=== PATIENT | female | born 1955 | race Caucasian/White ===

== ENCOUNTER 2018-04-23 15:07 | Observation (INO) | payer MEDICARE, OTHER ==
[2018-04-23] VITALS: BP 82/51
[~2018-04-23] VITALS: Ht 157.5 cm; Wt 45.8 kg
--- OUTSIDE RECORDS SUMMARY | 2018-04-23 15:12 | XMS REPORT ---
Author Author Admin, [place] Organization [facility] Address Unknown Phone Unavailable Allergies, Adverse Reactions, Alerts Allergy Name Reaction Description Start Date Severity Status Provider Allergies Unknown Conditions or Problems Problem Name Problem Code Onset Date Status Entry Date Provider Comment Standard Description Annotate ALCOHOL USE DISORDER, EARLY REMISSION, SEVERE Active Crystal Carrasquillo LCSW ALCOHOL USE DISORDER, SUSTAINED REMISSION, SEVERE Active Crystal Carrasquillo LCSW Bipolar I dsord ,most recent epsd, unspec 296.7 Active Marya Collazo GLASS CUTTING MACHINE FEEDER Bipolar I disorder, most recent episode (or current) unspecified Post traumatic stress disorder 309.81 Active Marya Collazo GLASS CUTTING MACHINE FEEDER Posttraumatic stress disorder Medication List Medication Instructions Start Date Stop Date Generic Name NDC Status Provider Patient Instruction Drug Treatment Unknown - unknown Procedures Code Procedure Name Date Entry Date Standard Description CPT-51680 Psychotherapy 45 (38-52*) min - 09206 (with patient and/or family member) 12:40:49 CDT CPT-24675 Psychotherapy 45 (38-52*) min - 82587 (with patient and/or family member) 10:12:01 EXTRACTOR MACHINE OPERATOR CPT-78786 Psychotherapy 45 (38-52*) min - 73143 (with patient and/or family member) 07:57:26 EXTRACTOR MACHINE OPERATOR CPT-68574 Psychotherapy 45 (38-52*) min - 62660 (with patient and/or family member) 07:51:39 EXTRACTOR MACHINE OPERATOR CPT-34183 Psychotherapy 45 (38-52*) min - 88483 (with patient and/or family member) 14:39:04 CDT CPT-35720 Psychotherapy 45 (38-52*) min - 05831 (with patient and/or family member) 15:57:26 CDT CPT-60606 Psychotherapy 45 (38-52*) min - 37093 (with patient and/or family member) 15:40:58 CDT CPT-95018 Psychotherapy 45 (38-52*) min - 40001 (with patient and/or family member) 15:30:55 CDT CPT-53674 Psychotherapy 45 (38-52*) min - 36029 (with patient and/or family member) 09:52:25 CDT CPT-44073 Psychotherapy 45 (38-52*) min - 44084 (with patient and/or family member) 10:57:14 EXTRACTOR MACHINE OPERATOR CPT-78636 Psychotherapy 45 (38-52*) min - 34710 (with patient and/or family member) 07:39:37 EXTRACTOR MACHINE OPERATOR CPT-77501 Psychotherapy 45 (38-52*) min - 05991 (with patient and/or family member) 12:22:35 EXTRACTOR MACHINE OPERATOR CPT-62668 Psychotherapy 45 (38-52*) min - 57450 (with patient and/or family member) 10:00:46 EXTRACTOR MACHINE OPERATOR CPT-45176 Psychotherapy 45 (38-52*) min - 71325 (with patient and/or family member) 14:18:00 CDT CPT-87223 Psychotherapy 45 (38-52*) min - 87508 (with patient and/or family member) 13:43:36 CDT CPT-79866 Psychotherapy 45 (38-52*) min - 21817 (with patient and/or family member) 13:50:27 CDT CPT-68421 Diagnostic evaluation (no medical) - 22875 12:18:57 CDT CPT-57735 Psychotherapy 45 (38-52*) min - 11142 (with patient and/or family member) 14:22:33 EXTRACTOR MACHINE OPERATOR CPT-34139 Psychotherapy 45 (38-52*) min - 82534 (with patient and/or family member) 13:53:45 EXTRACTOR MACHINE OPERATOR CPT-56817 Psychotherapy 45 (38-52*) min - 45221 (with patient and/or family member) 13:56:36 EXTRACTOR MACHINE OPERATOR CPT-88879 Psychotherapy 45 (38-52*) min - 82917 (with patient and/or family member) 13:45:45 EXTRACTOR MACHINE OPERATOR CPT-00454 Psychotherapy 45 (38-52*) min - 84600 (with patient and/or family member) 20:32:10 CDT CPT-49820 Psychotherapy 45 (38-52*) min - 32182 (with patient and/or family member) 13:48:27 CDT CPT-93812 Psychotherapy 45 (38-52*) min - 86585 (with patient and/or family member) 08:39:18 CDT CPT-00878 Psychotherapy 45 (38-52*) min - 58779 (with patient and/or family member) 22:48:20 CDT CPT-79317 Psychotherapy 45 (38-52*) min - 25708 (with patient and/or family member) 12:59:02 CDT CPT-40075 Psychotherapy 45 (38-52*) min - 84936 (with patient and/or family member) 08:50:00 CDT CPT-35194 Psychotherapy 45 (38-52*) min - 33481 (with patient and/or family member) 13:46:13 CDT CPT-87970 Psychotherapy 45 (38-52*) min - 23579 (with patient and/or family member) 14:04:12 CDT CPT-04523 Psychotherapy 45 (38-52*) min - 59708 (with patient and/or family member) 11:59:14 CDT CPT-43967 Psychotherapy 45 (38-52*) min - 69207 (with patient and/or family member) 14:44:30 CDT CPT-47029 Psychotherapy 45 (38-52*) min - 90295 (with patient and/or family member) 15:16:05 CDT CPT-17583 Diagnostic evaluation (no medical) - 27287 13:53:31 CDT
--- OUTSIDE RECORDS SUMMARY | 2018-04-23 15:12 | XMS REPORT | Clinical Summary ---
Author Author [facility] Address Unknown Phone Unavailable Care Team Providers Care Formula Mixer Name Role Phone Rosio Burns MD PCP Allergies Comments Active Allergy Reactions Severity Noted Date Cefaclor 08/30/2016 Medications End Date Status Medication Sig Dispensed Refills Start Date Active buPROPion SR (WELLBUTRIN TK 1 T PO QAM 2 SR) 150 MG 12 hr tablet 7 Active cyanocobalamin 1,000 INJECT 1000 0 mcg/mL injection MCG IM Q 7 MONTH Active gabapentin (NEURONTIN) TK 1 T PO QAM 3 600 mg tablet AND 2 TS QPM 7 Active lamoTRIgine (LaMICtal) TK 1 T PO 2 200 MG tablet ONCE DAILY 7 Active levothyroxine (SYNTHROID, TK 1 T PO D 0 LEVOXYL) 88 mcg tablet 7 Active traMADol (ULTRAM) 50 mg TK 2 TS PO 0 tablet BID 7 Active QUEtiapine (SEROquel) 200 2 (two) times 2 MG tablet a day. 7 Active ibuprofen (ADVIL,MOTRIN) Take 1 tablet 30 tablet 0 600 MG tablet (600 mg 7 total) by mouth every 6 (six) hours as needed for mild pain for up to 30 doses. Active ondansetron ODT (ZOFRAN Take 1 tablet 20 tablet 0 ODT) 4 MG disintegrating (4 mg total) 8 tablet by mouth every 8 (eight) hours as needed for nausea or vomiting for up to 30 doses. 12/25/2017 famotidine (PEPCID) 20 MG Take 1 tablet 60 tablet 0 tablet (20 mg total) 8 by mouth 2 (two) times a day for 30 days. Active Problems Problem Noted Date S/P gastric bypass 11/05/2016 Nausea 11/05/2016 Vomiting in adult 11/05/2016 Weight loss 11/05/2016 Encounters Care Team Description Date Type Specialty BarnesIzabel carias Bariatric Surgery Follow Up Letter 03/20/2018 Documentation Weight Management Izabel Barnes Bariatric Surgery Follow Up Call 03/20/2018 Documentation Weight Management Chano Gates DO Non-intractable vomiting with nausea, unspecified vomiting type (Primary Dx); Dehydration 11/25/2017 Emergency Emergency Medicine Rosio Burns MD Knee pain, unspecified chronicity, unspecified laterality 08/05/2017 Hospital Radiology Encounter Rosio Burns MD Knee pain, unspecified chronicity, unspecified laterality (Primary Dx) 08/05/2017 Transcribe Access Orders after 04/22/2017 Social History Date Tobacco Use Types Packs/Day Years Used Never Smoker Smokeless Tobacco: Never Used Tobacco Cessation: Counseling Given: No Alcohol Use Drinks/Week oz/Week Comments No Sex Assigned at Date Recorded Not on file Industry Job Start Date Occupation Not on file Not on file Not on file Travel End Travel History Travel Start No recent travel history available. Last Filed Vital Signs Time Taken Vital Sign Reading 11/25/2017 7:27 PM CDT Blood Pressure 124/77 11/25/2017 7:27 PM CDT Pulse 87 11/25/2017 3:57 PM CDT Temperature 36.7 C (98 F) 11/25/2017 7:27 PM CDT Respiratory Rate 17 11/25/2017 7:27 PM CDT Oxygen Saturation 100% - Inhaled Oxygen - Concentration - Weight - - Height - - Body Mass Index - Plan of Treatment Health Maintenance Due Date Last Done Comments CERVICAL CANCER SCREENING 1977 BREAST CANCER SCREENING 2006 COLON CANCER SCREENING 2006 SHINGLES VACCINES (1 of 2006 2) INFLUENZA VACCINE 10/22/2017 Procedures Comments Procedure Name Priority Date/Time Associated Diagnosis ECG ED PRELIMINARY Routine 11/25/2017 INTERPRETATION 6:40 PM CDT URINALYSIS SCREEN AND STAT 11/25/2017 MICROSCOPY, WITH REFLEX 4:56 PM CDT TO CULTURE URINE CULTURE STAT 11/25/2017 4:56 PM CDT ZZESTIMATED GFR STAT 11/25/2017 4:20 PM CDT LIPASE LEVEL STAT 11/25/2017 4:20 PM CDT COMPREHENSIVE METABOLIC STAT 11/25/2017 PANEL 4:20 PM CDT HC COMPLETE BLD COUNT STAT 11/25/2017 W/AUTO DIFF 4:20 PM CDT ECG 12-LEAD STAT 11/25/2017 4:07 PM CDT XR KNEE 4+ VW RIGHT Routine 08/05/2017 Knee pain, unspecified 3:48 PM CDT chronicity, unspecified laterality after 04/22/2017 Results * ECG ED Preliminary Interpretation - NOT AN ORDER (11/25/2017 6:40 PM CDT) Narrative Performed At Chano Gates DO 11/26/20174:01 PM ECG ED Preliminary Interpretation - Not an Order Performed by: CHANO GATES Authorized by: CHANO GATES ECG reviewed by ED Physician in the absence of a emergency room technician: yes Interpretation: Interpretation: normal Rate: ECG rate:100 ECG rate assessment: normal Rhythm: Rhythm: sinus rhythm Ectopy: Ectopy: none QRS: QRS axis:Normal QRS intervals:Normal Conduction: Conduction: normal ST segments: ST segments:Normal T waves: T waves: normal * Urinalysis screen and microscopy, with reflex to culture (11/25/2017 4:56 PM CDT) Specimen site Clean catch [facility] DEPARTMENT OF PATHOLOGY AND GENOMIC MEDICINE Color, UA Yellow [facility] DEPARTMENT OF PATHOLOGY AND GENOMIC MEDICINE Appearance, UA Clear [facility] DEPARTMENT OF PATHOLOGY AND GENOMIC MEDICINE Specific gravity, UA 1.018 1.001 - 1.035 [facility] DEPARTMENT OF PATHOLOGY AND GENOMIC MEDICINE pH, UA 6.0 5.0 - 8.5 [facility] DEPARTMENT OF PATHOLOGY AND GENOMIC MEDICINE Protein, UA Negative Negative [facility] DEPARTMENT OF PATHOLOGY AND GENOMIC MEDICINE Glucose, UA Negative Negative [facility] DEPARTMENT OF PATHOLOGY AND GENOMIC MEDICINE Ketones, UA Negative Negative [facility] DEPARTMENT OF PATHOLOGY AND GENOMIC MEDICINE Bilirubin, UA Negative Negative [facility] DEPARTMENT OF PATHOLOGY AND GENOMIC MEDICINE Blood, UA Negative Negative [facility] DEPARTMENT OF PATHOLOGY AND GENOMIC MEDICINE Nitrite, UA Negative Negative [facility] DEPARTMENT OF PATHOLOGY AND GENOMIC MEDICINE Urobilinogen, UA Negative <2.0 [facility] DEPARTMENT OF PATHOLOGY AND GENOMIC MEDICINE Leukocyte esterase, UA Negative Negative [facility] DEPARTMENT OF PATHOLOGY AND GENOMIC MEDICINE Epithelial cells, UA Few /HPF [facility] DEPARTMENT OF PATHOLOGY AND GENOMIC MEDICINE WBC, UA 3 0 - 5 /HPF [facility] DEPARTMENT OF PATHOLOGY AND GENOMIC MEDICINE RBC, UA 1 0 - 5 /HPF [facility] DEPARTMENT OF PATHOLOGY AND GENOMIC MEDICINE Bacteria, UA None seen None seen [facility] DEPARTMENT OF PATHOLOGY AND GENOMIC MEDICINE Yeast, UA None seen [facility] DEPARTMENT OF PATHOLOGY AND GENOMIC MEDICINE Yeast with pseudohyphae, None seen [facility] DEPARTMENT OF UA PATHOLOGY AND GENOMIC MEDICINE Specimen Urine Performing Organization Address City/State/Zipcode Phone Number [address] [place] [address] PATHOLOGY AND GENOMIC MEDICINE * Urine culture (11/25/2017 4:56 PM CDT) Urine culture SEE COMMENTComment: [facility] DEPARTMENT OF Bacteriuria screen negative. PATHOLOGY AND GENOMIC MEDICINE Specimen Urine Performing Organization Address City/[facility] Cent[facility]ode Phone Number [facility] [address] [place] [address] [place] [address] PATHOLOGY AND GENOMIC MEDICINE * Estimated GFR (11/25/2017 4:20 PM CDT) GFR Non Af Amer 85 mL/min/1.73 m2 [facility] DEPARTMENT OF PATHOLOGY AND GENOMIC MEDICINE GFR Af Amer >90 mL/min/1.73 m2 [facility] DEPARTMENT OF Comment: PATHOLOGY AND Chronic kidney disease: <60 GENOMIC MEDICINE mL/min/1.73m2 Kidney failure: <15 mL/min/1.73m2 The estimated GFR is calculated from the IDMS-traceable Modification of Diet in Renal Disease Equation. The accuracy of the calculation is poor when the creatinine is normal. Calculated values >90 mL/min/1.73m2 are not reported. This equation has not been validated in children (<18 years), women, the elderly (>70 years), or ethnic groups other than Caucasians and Americans. Specimen Plasma specimen Performing Organization Address City/[facility]/Zipcode Phone Number [address] [place] [address] PATHOLOGY AND GENOMIC MEDICINE * CBC with platelet and differential (11/25/2017 4:20 PM CDT) WBC 5.2 4.2 - 11.0 k/uL [facility] DEPARTMENT OF PATHOLOGY AND GENOMIC MEDICINE RBC 4.49 4.04 - 5.86 m/uL [facility] DEPARTMENT OF PATHOLOGY AND GENOMIC MEDICINE HGB 11.6 11.5 - 15.3 g/dL [facility] DEPARTMENT OF PATHOLOGY AND GENOMIC MEDICINE HCT 38.3 34.0 - 45.0 % [facility] DEPARTMENT OF PATHOLOGY AND GENOMIC MEDICINE MCV 85.3 80.0 - 98.0 fL [facility] DEPARTMENT OF PATHOLOGY AND GENOMIC MEDICINE MCH 25.8 (L) 27.0 - 34.0 pg [facility] DEPARTMENT OF PATHOLOGY AND GENOMIC MEDICINE MCHC 30.3 (L) 31.5 - 36.5 g/dL [facility] DEPARTMENT OF PATHOLOGY AND GENOMIC MEDICINE RDW - SD 44.0 37.0 - 51.0 fL [facility] DEPARTMENT OF PATHOLOGY AND GENOMIC MEDICINE MPV 10.5 (H) 7.4 - 10.4 fL [facility] DEPARTMENT OF PATHOLOGY AND GENOMIC MEDICINE Platelet count 193 150 - 400 k/uL [facility] DEPARTMENT OF PATHOLOGY AND GENOMIC MEDICINE Nucleated RBC 0.00 /100 WBC [facility] DEPARTMENT OF PATHOLOGY AND GENOMIC MEDICINE Neutrophils 68.5 (H) 36.0 - 66.0 % [facility] DEPARTMENT OF PATHOLOGY AND GENOMIC MEDICINE Lymphocytes 26.1 24.0 - 44.0 % [facility] DEPARTMENT OF PATHOLOGY AND GENOMIC MEDICINE Monocytes 5.0 0.0 - 6.0 % [facility] DEPARTMENT OF PATHOLOGY AND GENOMIC MEDICINE Eosinophils 0.0 0.0 - 6.0 % [facility] DEPARTMENT OF PATHOLOGY AND GENOMIC MEDICINE Basophils 0.2 0.0 - 1.2 % [facility] DEPARTMENT OF PATHOLOGY AND GENOMIC MEDICINE Immature granulocytes 0.2 0.0 - 1.0 % [facility] DEPARTMENT OF PATHOLOGY AND GENOMIC MEDICINE Specimen Blood Performing Organization Address City/[facility]/Zipcode Phone Number [address] [place] [address] PATHOLOGY AND GENOMIC MEDICINE * Lipase level (11/25/2017 4:20 PM CDT) Lipase 31 13 - 60 U/L [facility] DEPARTMENT OF PATHOLOGY AND GENOMIC MEDICINE Specimen Plasma specimen Performing Organization Address City/State/Zipcode Phone Number [place] [address] [place] [address] PATHOLOGY AND GENOMIC MEDICINE * Comprehensive metabolic panel (11/25/2017 4:20 PM CDT) Sodium 142 135 - 150 mEq/L [facility] DEPARTMENT OF PATHOLOGY AND GENOMIC MEDICINE Potassium 4.2 3.5 - 5.0 mEq/L [facility] DEPARTMENT OF PATHOLOGY AND GENOMIC MEDICINE Chloride 100 98 - 112 mEq/L [facility] DEPARTMENT OF PATHOLOGY AND GENOMIC MEDICINE CO2 29 24 - 31 mmol/L [facility] DEPARTMENT OF PATHOLOGY AND GENOMIC MEDICINE Anion gap 13@ANIO 7 - 15 mEq/L [facility] DEPARTMENT OF PATHOLOGY AND GENOMIC MEDICINE BUN 13 7 - 18 mg/dL [facility] DEPARTMENT OF PATHOLOGY AND GENOMIC MEDICINE Creatinine 0.70 0.50 - 0.90 mg/dL [facility] DEPARTMENT OF PATHOLOGY AND GENOMIC MEDICINE Glucose 97 65 - 100 mg/dL [facility] DEPARTMENT OF PATHOLOGY AND GENOMIC MEDICINE Calcium 9.9 8.8 - 10.2 mg/dL [facility] DEPARTMENT OF PATHOLOGY AND GENOMIC MEDICINE Protein 7.4 6.3 - 8.3 g/dL [facility] DEPARTMENT OF PATHOLOGY AND GENOMIC MEDICINE Albumin 4.2 3.5 - 5.0 g/dL [facility] DEPARTMENT OF PATHOLOGY AND GENOMIC MEDICINE A/G ratio 1.3 0.7 - 3.8 [facility] DEPARTMENT OF PATHOLOGY AND GENOMIC MEDICINE Alkaline phosphatase 99 0 - 104 U/L [facility] DEPARTMENT OF PATHOLOGY AND GENOMIC MEDICINE AST 30 10 - 35 U/L [facility] DEPARTMENT OF PATHOLOGY AND GENOMIC MEDICINE ALT 16 5 - 50 U/L [facility] DEPARTMENT OF PATHOLOGY AND GENOMIC MEDICINE Total bilirubin 0.3 0.2 - 1.2 mg/dL [facility] DEPARTMENT OF PATHOLOGY AND GENOMIC MEDICINE Specimen Plasma specimen Performing Organization Address City/State/Zipcode Phone Number [place] [address] [place] [address] PATHOLOGY AND GENOMIC MEDICINE * ECG 12 lead (11/25/2017 4:07 PM CDT) Ventricular rate 100 [facility] Atrial rate 100 [facility] DC interval 134 [facility] QRSD interval 74 [facility] QT interval 322 [facility] QTC interval 415 [facility] P axis 1 70 [facility] QRS axis 1 36 [facility] T wave axis 63 [facility] EKG impression Normal sinus rhythm-Possible [facility] Left atrial enlargement-Borderline ECG-In automated comparison with ECG of 18-FEB-2017 07:44,-No significant change was found- Performing Organization Address City/State/Zipcode Phone Number [facility] [address] [place] [address] * XR Knee 4+ Vw Right (08/05/2017 3:48 PM CDT) Narrative Performed At EXAMINATION:XR KNEE 4VW RIGHT [facility] CLINICAL HISTORY:M25.569 Pain in unspecified knee, m25.569 COMPARISON:None. IMPRESSION: There is no evidence of right knee fracture, dislocation, or joint effusion. Bone mineralization is normal. [facility]-[id number] Procedure Note Hm Interface, Radiology Results Incoming - 08/05/2017 4:52 PM CDT EXAMINATION: XR KNEE 4 VW RIGHT CLINICAL HISTORY: M25.569 Pain in unspecified knee, m25.569 COMPARISON: None. IMPRESSION: There is no evidence of right knee fracture, dislocation, or joint effusion. Bone mineralization is normal. [facility]-[id number] Performing Organization Address [facility] Cent[facility]ode Phone Number [facility] [address] [place] [address] after 04/22/2017 Insurance Payer Benefit Subscriber ID Type Phone Address Plan / Group MEDICARE MEDICARE xxxxxxxxxx Medicare [place], [place] PART A AND B AETNA AETNA xxxxxxxxxx Indemnity [facility] RE INDEMNITY Advance Directives Patient has advance care planning documents on file. For more information, tomy avendano contact: Matty Quiñones [address] [place] [address]
[2018-04-23 16:56] LABS: HEMATOCRIT 39.1 % (34.2-44.1); HEMOGLOBIN 12.7 g/dL (12.0-16.0); LYMPHOCYTES # (AUTO) 1.8 (1.0-3.2); LYMPHOCYTES % 29.1 % (18.0-39.1); MEAN CORPUSCULAR HEMOGLOBIN 26.7 pg (28-32); MEAN CORPUSCULAR HGB CONC 32.5 g/dL (31-35); MEAN CORPUSCULAR VOLUME 82.3 fL (81-99); MONOCYTES # (AUTO) 0.4 (0.2-0.8); MONOCYTES % 7.1 % (4.4-11.3); NEUTROPHILS # (AUTO) 3.9 (2.1-6.9); NEUTROPHILS % 63.3 % (38.7-80.0); PLATELET COUNT 237 x10e3/uL (140-360); RED BLOOD COUNT 4.75 x10e6/uL (3.6-5.1); RED CELL DISTRIBUTION WIDTH 14.3 % (11.7-14.4)
[2018-04-23 17:16] LABS: ALANINE AMINOTRANSFERASE 14 IU/L (0-55); ALBUMIN 3.7 g/dL (3.5-5.0); ALBUMIN/GLOBULIN RATIO 1.4 (0.8-2.0); ALKALINE PHOSPHATASE 80 IU/L (40-150); ANION GAP 19.9 mmol/L (8-16); BLOOD UREA NITROGEN 17 mg/dL (7-26); BUN/CREATININE RATIO 23 (6-25); CARBON DIOXIDE 20 mmol/L (22-29); CHLORIDE 99 mmol/L (98-107); CREATINE KINASE 179 IU/L (29-168); CREATININE, SERUM 0.75 mg/dL (0.57-1.11); EST GLOMERULAR FILTRATION RATE > 60 ML/MIN (60-); GLUCOSE 88 mg/dL (74-118); LIPASE 58 U/L (8-78); SODIUM 136 mmol/L (136-145)
[2018-04-23 17:22] LABS: POTASSIUM 2.9 mmol/L (3.5-5.1)
--- NOTE | 2018-04-23 17:25 | NUR ---
bizzare behavior. cries with no tears, states she doesn't know how to get comfort. pt requesting 5 pillows. pt has 2 pillows. pt given 3 warm blankets. pt found wandering. pt pleasant however and cooperative and will follow direction. non confrentational with staff. pt in gown, on monitors and comfortable. back to see pt and she had pulled off all monitors and found naked in bed.
[2018-04-23] MEDS ORDERED: POTASSIUM CHLORIDE 20MEQ/100ML 50 ML IV ONE (17:30)
--- OUTSIDE RECORDS SUMMARY | 2018-04-23 17:39 | XMS REPORT | Clinical Summary ---
Author Author [facility] Organization [place] [facility] Address Unknown Phone Unavailable Care Team Providers Care Residential Plumber Name Role Phone Rosio Burns MD PCP [...] ED Physician in the absence of a cell changer: yes Interpretation: Interpretation: normal Rate: ECG rate:100 ECG rate assessment: normal Rhythm: Rhythm: sinus rhythm Ectopy: Ectopy: none QRS: QRS axis:Normal QRS intervals:Normal Conduction: Conduction: normal ST segments: ST segments:Normal T waves: T waves: normal * Urinalysis screen and microscopy, with reflex to culture (11/25/2017 4:56 PM CDT) Specimen site Clean catch [facility]OMIC MEDICINE Color, UA Yellow [facility] GENOMIC MEDICINE Appearance, UA Clear [facility]Y AND GENOMIC MEDICINE Specific gravity, UA 1.018 1.001 - 1.035 [facility] GENOMIC MEDICINE pH, UA 6.0 5.0 - 8.5 [facility] GENOMIC MEDICINE Protein, UA Negative Negative [facility] GENOMIC MEDICINE Glucose, UA Negative Negative [facility]Y AND GENOMIC MEDICINE Ketones, UA Negative Negative [facility]Y AND GENOMIC MEDICINE Bilirubin, UA Negative Negative [facility]OLOGY AND GENOMIC MEDICINE Blood, UA Negative Negative [facility]OLOGY AND GENOMIC MEDICINE Nitrite, UA Negative Negative [facility]OLOGY AND GENOMIC MEDICINE Urobilinogen, UA Negative <2.0 [facility]Y AND GENOMIC MEDICINE Leukocyte esterase, UA Negative Negative [facility]OLOGY AND GENOMIC MEDICINE Epithelial cells, UA Few /HPF [facility]OLOGY AND GENOMIC MEDICINE WBC, UA 3 0 - 5 /HPF [facility]OLOGY AND GENOMIC MEDICINE RBC, UA 1 0 - 5 /HPF [facility]OLOGY AND GENOMIC MEDICINE Bacteria, UA None seen None seen [facility]OLOGY AND GENOMIC MEDICINE Yeast, UA None seen [facility] PATHOLOGY AND GENOMIC MEDICINE Yeast with pseudohyphae, None seen [facility] UA PATHOLOGY AND GENOMIC MEDICINE Specimen Urine Performing Organization Address City/State/Zipcode Phone Number [address] [place] [address] PATHOLOGY AND GENOMIC MEDICINE * Urine culture (11/25/2017 4:56 PM CDT) Urine culture SEE COMMENTComment: [facility] Bacteriuria screen negative. PATHOLOGY AND GENOMIC MEDICINE Specimen Urine Performing Organization Address City/[facility] Phone Number [facility] [address] [place] [address] [place] [address] PATHOLOGY AND GENOMIC MEDICINE * Estimated GFR (11/25/2017 4:20 PM CDT) GFR Non Af Amer 85 mL/min/1.73 m2 [facility] PATHOLOGY AND GENOMIC MEDICINE GFR Af Amer >90 mL/min/1.73 m2 [facility] Comment: PATHOLOGY AND Chronic kidney [...] Americans. Specimen Plasma specimen Performing Organization Address City/[facility]/Zipcode Phone Number [address] [place] [address] PATHOLOGY AND GENOMIC MEDICINE * CBC with platelet and differential (11/25/2017 4:20 PM CDT) WBC 5.2 4.2 - 11.0 k/uL [facility]OLOGY AND GENOMIC MEDICINE RBC 4.49 4.04 - 5.86 m/uL [facility]OLOGY AND GENOMIC MEDICINE HGB 11.6 11.5 - 15.3 g/dL [facility] PATHOLOGY AND GENOMIC MEDICINE HCT 38.3 34.0 - 45.0 % [facility] PATHOLOGY AND GENOMIC MEDICINE MCV 85.3 80.0 - 98.0 fL [facility]OLOGY AND GENOMIC MEDICINE MCH 25.8 (L) 27.0 - 34.0 pg [facility] PATHOLOGY AND GENOMIC MEDICINE MCHC 30.3 (L) 31.5 - 36.5 g/dL [facility] PATHOLOGY AND GENOMIC MEDICINE RDW - SD 44.0 37.0 - 51.0 fL [facility] PATHOLOGY AND GENOMIC MEDICINE MPV 10.5 (H) 7.4 - 10.4 fL [facility]OLOGY AND GENOMIC MEDICINE Platelet count 193 150 - 400 k/uL [facility]OLOGY AND GENOMIC MEDICINE Nucleated RBC 0.00 /100 WBC [facility] OF PATHOLOGY AND GENOMIC MEDICINE Neutrophils 68.5 (H) 36.0 - 66.0 % [facility]OLOGY AND GENOMIC MEDICINE Lymphocytes 26.1 24.0 - 44.0 % [facility] PATHOLOGY AND GENOMIC MEDICINE Monocytes 5.0 0.0 - 6.0 % [facility] PATHOLOGY AND GENOMIC MEDICINE Eosinophils 0.0 0.0 - 6.0 % [facility] PATHOLOGY AND GENOMIC MEDICINE Basophils 0.2 0.0 - 1.2 % [facility]OLOGY AND GENOMIC MEDICINE Immature granulocytes 0.2 0.0 - 1.0 % [facility] PATHOLOGY AND GENOMIC MEDICINE Specimen Blood Performing Organization Address City/[facility]/Zipcode Phone Number [address] [place] [address] PATHOLOGY AND GENOMIC MEDICINE * Lipase level (11/25/2017 4:20 PM CDT) Lipase 31 13 - 60 U/L [facility]OLOGY AND GENOMIC MEDICINE Specimen Plasma specimen Performing Organization Address City/State/Zipcode Phone Number [place] [address] [place] [address] PATHOLOGY AND GENOMIC MEDICINE * Comprehensive metabolic panel (11/25/2017 4:20 PM CDT) Sodium 142 135 - 150 mEq/L [facility] PATHOLOGY AND GENOMIC MEDICINE Potassium 4.2 3.5 - 5.0 mEq/L [facility] PATHOLOGY AND GENOMIC MEDICINE Chloride 100 98 - 112 mEq/L [facility] PATHOLOGY AND GENOMIC MEDICINE CO2 29 24 - 31 mmol/L [facility] PATHOLOGY AND GENOMIC MEDICINE Anion gap 13@ANIO 7 - 15 mEq/L [facility] PATHOLOGY AND GENOMIC MEDICINE BUN 13 7 - 18 mg/dL [facility] PATHOLOGY AND GENOMIC MEDICINE Creatinine 0.70 0.50 - 0.90 mg/dL [facility] PATHOLOGY AND GENOMIC MEDICINE Glucose 97 65 - 100 mg/dL [facility] PATHOLOGY AND GENOMIC MEDICINE Calcium 9.9 8.8 - 10.2 mg/dL [facility] PATHOLOGY AND GENOMIC MEDICINE Protein 7.4 6.3 - 8.3 g/dL [facility] PATHOLOGY AND GENOMIC MEDICINE Albumin 4.2 3.5 - 5.0 g/dL [facility] PATHOLOGY AND GENOMIC MEDICINE A/G ratio 1.3 0.7 - 3.8 [facility] PATHOLOGY AND GENOMIC MEDICINE Alkaline phosphatase 99 0 - 104 U/L [facility] PATHOLOGY AND GENOMIC MEDICINE AST 30 10 - 35 U/L [facility] PATHOLOGY AND GENOMIC MEDICINE ALT 16 5 - 50 U/L [facility] PATHOLOGY AND GENOMIC MEDICINE Total bilirubin 0.3 0.2 - 1.2 mg/dL [facility] PATHOLOGY AND GENOMIC MEDICINE Specimen Plasma specimen Performing Organization Address City/State/Zipcode Phone Number [place] [address] [place] [address] PATHOLOGY AND GENOMIC MEDICINE * ECG 12 lead (11/25/2017 4:07 PM CDT) Ventricular rate 100 [facility] Atrial rate 100 [facility] AZ interval 134 [facility] QRSD interval 74 [facility] QT interval 322 [facility] QTC interval 415 [facility] P axis 1 70 [facility] QRS axis 1 36 [facility] T wave axis 63 [facility] EKG impression Normal sinus rhythm-Possible [facility] Left atrial enlargement-Borderline ECG-In automated comparison with ECG of 18-FEB-2017 07:44,-No significant change was found- Performing Organization Address City/State/Zipcode Phone Number [facility] [address] [place] [address] * XR Knee 4+ Vw Right (08/05/2017 3:48 PM CDT) Narrative Performed At EXAMINATION:XR KNEE 4VW RIGHT [facility] CLINICAL HISTORY:M25.569 Pain in unspecified knee, m25.569 COMPARISON:None. IMPRESSION: There is no evidence of right knee fracture, dislocation, or joint effusion. Bone mineralization is normal. [facility]-[id number] Procedure Note Hm Interface, Radiology Results Incoming - 08/05/2017 4:52 PM CDT EXAMINATION: XR KNEE 4 VW RIGHT CLINICAL HISTORY: M25.569 Pain in unspecified knee, m25.569 COMPARISON: None. IMPRESSION: There is no evidence of right knee fracture, dislocation, or joint effusion. Bone mineralization is normal. [facility]-[id number] Performing Organization Address [facility] Cent[facility]ode Phone Number [facility] [address] [place] [address] after 04/22/2017 Insurance Payer Benefit Subscriber ID Type Phone Address Plan / Group MEDICARE MEDICARE xxxxxxxxxx Medicare [place], [place] PART A AND B AETNA AETNA xxxxxxxxxx Indemnity [facility] RE INDEMNITY Advance Directives Patient has advance care planning documents on file. For more information, tomy avendano contact: Matty Quiñones [address] [place] [address]
[2018-04-23] MEDS ORDERED: POTASSIUM CHLORIDE 10MEQ/100ML 100 ML INJ ONE (17:45)
[2018-04-23] MEDS ORDERED: POTASSIUM CHLORIDE 20 MEQ TAB CR PO STA (17:56)
--- NOTE | 2018-04-23 18:06 | Diagnostic Imaging Report ---
History: Altered mental status Comparison studies: None Technique: Axial images were obtained from the skull base to the vertex. Coronal and sagittal reconstructions obtained from the axial data. Dose modulation, iterative reconstruction, and/or weight based adjustment of the mA/kV was utilized to reduce the radiation dose to as low as reasonably achievable. Findings: Scalp/skull: No abnormalities. No fractures, blastic or lytic lesions. Extra-axial spaces: No masses. No fluid collections. Brain sulci: Appropriate for age. Ventricles: Normal in size and configuration. No hydrocephalus. Parenchyma: No abnormal densities. No masses, hemorrhage, acute or chronic cortical vascular insults. Sellar/suprasellar region: No abnormalities Craniocervical junction: Patent foramen magnum. No Chiari one malformation. Incidental partially visualized right ethmoidectomy. IMPRESSION: No intracranial abnormalities. Signed by: Dr. Louis Rosa M.D. on 04/23/2018 6:03 PM
[2018-04-23 19:10] VITALS: BP 111/76
--- NOTE | 2018-04-23 19:10 | NUR ---
REPORT RECEIVED FROM OFF GOING NURSE, PT RESTING IN BED ALERT AND ORIENTED, WITH NO DISTRESS NOTED, EX AT BEDSIDE, DENIES NEEDS, CALL LIGHT IN REACH, INSTRUCTED TO CALL WITH NEEDS
[2018-04-23 20:00] VITALS: BP 111/76
[2018-04-23] MEDS ORDERED: OMEPRAZOLE20 M1 PO (20:04)
[2018-04-23] MEDS ORDERED: FAMOTIDINE20 MG PO (20:04)
[2018-04-23] MEDS ORDERED: CYCLOBENZAPRINE5 MG PO (20:04)
[2018-04-23] MEDS ORDERED: QUETIAPINE FUM100 MG PO (20:04)
[2018-04-23] MEDS ORDERED: ZOFRAN4 MG/5 ML IV (20:04)
[2018-04-23] MEDS ORDERED: LORATADINE10 MG PO (20:04)
[2018-04-23] MEDS ORDERED: SIMETHICONE80 MG PO (20:04)
[2018-04-23] MEDS ORDERED: LOPERAMIDE2 MG PO (20:04)
[2018-04-23] MEDS ORDERED: LAMICTAL100 MG PO (20:04)
[2018-04-23] MEDS ORDERED: TUMS300 MG PO (20:04)
[2018-04-23] MEDS ORDERED: BUSPIRONE HCL5 MG PO (20:04)
[2018-04-23] MEDS ORDERED: SYNTHROID88 MCG PO (20:04)
[2018-04-23] MEDS ORDERED: DIPHENHYDRAMINE25 MG PO (20:04)
[2018-04-23] MEDS ORDERED: WELLBUTRIN SR150 MG PO (20:04)
[2018-04-23] MEDS ORDERED: FIBERCON625 MG PO (20:04)
[2018-04-23] MEDS ORDERED: GABAPENTIN400 MG PO ×2 (20:04)
[2018-04-23] MEDS ORDERED: NAPROXEN250 MG PO (20:04)
[2018-04-23] MEDS ORDERED: ULTRAM50 MG PO (20:04)
[2018-04-23] MEDS ORDERED: SIMETHICONE 80 MG CHEW PO PRN (20:15)
[2018-04-23] MEDS ORDERED: BUSPIRONE HCL 5 MG TAB PO PRN (20:15)
[2018-04-23] MEDS ORDERED: NON-FORMULARY MEDICATION (Cyclobenzaprine Hcl (Flexeril) 10 MG) PO PRN (20:15)
[2018-04-23] MEDS ORDERED: PANTOPRAZOLE SOD 40 MG TABEC PO PRN (20:15)
[2018-04-23] MEDS ORDERED: NON-FORMULARY MEDICATION (Diphenhydramine Hcl 25 MG) PO PRN (20:15)
[2018-04-23] MEDS ORDERED: LORATADINE 10 MG TAB PO PRN (20:15)
[2018-04-23] MEDS: DEXTROSE 5%/0.45% SOD CHL 1,000 ML IV SCH (20:15)
[2018-04-23] MEDS ORDERED: CALCIUM POLYCARBOPHIL 625 MG TAB PO PRN (20:15)
[2018-04-23] MEDS ORDERED: NAPROXEN 250 MG TAB PO PRN (20:15)
[2018-04-23] MEDS ORDERED: NON-FORMULARY MEDICATION (Loperamide Hcl (Loperamide) 2 MG) PO PRN (20:15)
[2018-04-23] MEDS ORDERED: ONDANSETRON HCL INJ 2MG/ML 2ML 2 MG/ML VIAL IV PRN (20:30)
[2018-04-23] MEDS ORDERED: QUETIAPINE FUMARATE 100 MG TAB PO SCH (21:00)
[2018-04-23] MEDS ORDERED: DIPHENHYDRAMINE HCL 25 MG CAP PO PRN (21:00)
[2018-04-23] MEDS ORDERED: CYCLOBENZAPRINE HCL 10 MG TAB PO PRN (21:00)
[2018-04-23] MEDS ORDERED: GABAPENTIN 400 MG CAP PO SCH (21:00)
[2018-04-23] MEDS: TRAMADOL HCL 50 MG TAB PO PRN (21:02)
[2018-04-23] MEDS ORDERED: LOPERAMIDE HCL 2 MG CAP PO PRN (21:15)
[2018-04-23] MEDS ORDERED: NON-FORMULARY MEDICATION (Ondansetron Hcl (Zofran) 4 MG) IV SCH (22:00)
[2018-04-23] MEDS: CALCIUM CARBONATE 500 MG CHEWABLE TABS PO SCH (23:16)
[2018-04-24] MEDS ORDERED: CALCIUM CARBONATE 1000 MG PO SCH
[2018-04-24 04:00] VITALS: BP 98/58
[2018-04-24] MEDS: CALCIUM CARBONATE 500 MG CHEWABLE TABS PO SCH ×2 (05:45→13:16)
[2018-04-24] MEDS: DEXTROSE 5%/0.45% SOD CHL 1,000 ML IV SCH (06:01)
[2018-04-24] MEDS ORDERED: LEVOTHYROXINE SODIUM 88 MCG TAB PO SCH (06:30)
[2018-04-24 07:37] LABS: BASOPHILS % 0.2 % (0.0-1.0); HEMOGLOBIN 12.5 g/dL (12.0-16.0); LYMPHOCYTES # (AUTO) 2.2 (1.0-3.2); LYMPHOCYTES % 46.9 % (18.0-39.1); MEAN CORPUSCULAR HEMOGLOBIN 26.5 pg (28-32); MEAN CORPUSCULAR HGB CONC 32.9 g/dL (31-35); MEAN CORPUSCULAR VOLUME 80.7 fL (81-99); MONOCYTES # (AUTO) 0.4 (0.2-0.8); MONOCYTES % 8.3 % (4.4-11.3); NEUTROPHILS # (AUTO) 2.1 (2.1-6.9); NEUTROPHILS % 44.4 % (38.7-80.0); PLATELET COUNT 188 x10e3/uL (140-360); RED BLOOD COUNT 4.71 x10e6/uL (3.6-5.1); RED CELL DISTRIBUTION WIDTH 14.4 % (11.7-14.4)
[2018-04-24 07:51] VITALS: BP 85/55
[2018-04-24 07:56] LABS: ANION GAP 14.6 mmol/L (8-16); BLOOD UREA NITROGEN 14 mg/dL (7-26); BUN/CREATININE RATIO 22 (6-25); CALCIUM 8.6 mg/dL (8.4-10.2); CARBON DIOXIDE 22 mmol/L (22-29); CHLORIDE 103 mmol/L (98-107); CREATININE, SERUM 0.63 mg/dL (0.57-1.11); EST GLOMERULAR FILTRATION RATE > 60 ML/MIN (60-); GLUCOSE 94 mg/dL (74-118); POTASSIUM 3.6 mmol/L (3.5-5.1); SODIUM 136 mmol/L (136-145)
[2018-04-24 08:00] VITALS: BP 85/55
[2018-04-24] MEDS: FAMOTIDINE 20 MG TAB PO SCH ×2 (08:43→17:18)
[2018-04-24] MEDS: BUPROPION HCL SR 150 MG TAB PO SCH ×2 (08:50→17:18)
[2018-04-24] MEDS ORDERED: LAMOTRIGINE 100 MG TAB PO SCH (09:00)
[2018-04-24] MEDS ORDERED: GABAPENTIN 300 MG CAP PO SCH (09:00)
[2018-04-24] MEDS ORDERED: POTASSIUM CHLORIDE 10MEQ EA PO SCH (09:00)
[2018-04-24] MEDS ORDERED: POTASSIUM CHLORIDE 20 MEQ TAB CR PO SCH (09:00)
[2018-04-24] MEDS ORDERED: GABAPENTIN 400 MG CAP PO SCH (09:00)
[2018-04-24] MEDS ORDERED: NAPROXEN 250 MG TAB PO PRN (11:30)
[2018-04-24 11:59] VITALS: BP 94/54
--- NOTE | 2018-04-24 12:16 | Diagnostic Imaging Report ---
EXAMINATION: PA and lateral views of the chest. COMPARISON: None CLINICAL HISTORY: Shortness breath DISCUSSION: Lines/tubes: Presumed nerve stimulator with the distal aspect overlying the left lower cervical region. Lungs: The lungs are well inflated and clear. No pneumonia or pulmonary edema. Pleura: No pleural effusion or pneumothorax. Heart and mediastinum: The cardiomediastinal silhouette is normal. Bones and soft tissues: No acute bony abnormalities. IMPRESSION: No acute cardiopulmonary abnormalities. Signed by: Dr. Minh Garzon M.D. on 04/24/2018 12:13 PM
[2018-04-24] MEDS: TRAMADOL HCL 50 MG TAB PO PRN ×2 (13:17→17:07)
--- NOTE | 2018-04-24 14:00 | NUR ---
Spoke with Dr. Patterson this afternoon and states pt can discharge if pt does not have any bowel movement by 1600.
[2018-04-24 15:47] VITALS: BP 116/68
--- NOTE | 2018-04-24 16:07 | NUR ---
Nutrition Intervention Note RD Recommendation(s) for Physician: -Rec to liberalize diet to regular -Rec Ensure Enlive BID to promote protein-calorie intake -Encourage PO and hydration The patient meets criteria for unspecified SEVERE protein-calorie malnutrition. Plan of Care: RD following, monitoring for tolerance and adequacy, ONS rec Nutrition reason for involvement: Nutrition Risk Trigger MST RD Assessment 04/24- Chart reviewed. 63yo F, who is admitted for AMS. Visited pt in the room. Pt was slightly irritated during my interview. Pt reported eating less than usual x 5 days. Her reported UBW ~110lb; pt stated I dont know when I started losing weight. No GI complains at this time. LBM 04/23. Pt denied chewing or swallowing difficulty. RN recorded 75-100% meal intake since admission. Pt had some signs of muscle and fat loss upon NFPA. (see below) Communicated RD recommendation to MICHELA Vicente. Will continue to monitor and follow. Principal Problems/Diagnoses: AMS PMH: No H&P in chart GI: abdomen soft, non-tender, flatus present Skin: intact Labs: (04/24) reviewed Meds: Tums, pepcid, K-dur, dextrose Ht: 62in Wt: 101lb BMI: 18.5kg/m2 IBW: 110lb Malnutrition Evaluation (04/24) The patient meets criteria for unspecified SEVERE protein-calorie malnutrition. Energy intake: <50% of estimated energy requirements for >5 days Weight loss: Pt doesnt know. Fat loss: Severe protrusion of clavicle and acromion process Muscle loss: Severe hollow orbital with dark ramona, temporal depression Supporting Evidence: Fluid accumulation: unable to evaluate Functional Status: no changes Nutrition Prescription (Diet Order): cardiac diet Estimated Nutritional Needs: Calories: 1150 1610kcal (25-35kcal/kg/d) Weight used : current BW Protein: 46- 69g (1-1.5g/kg/d) Weight used: current BW Diet Adequacy: N/A Diet Education Needs Assessment: Diet education not indicated. Nutrition Care Level: mod Nutrition Diagnosis: Unintended weight loss related to chronic illness as evidenced by pt reported eating less than usual and weight less than UBW. Goal: Patient will meet 75-100% of estimated needs by follow up Progress: N/A Interventions: General healthful diet, Commercial beverage Monitoring/Evaluation: Total energy intake, Total protein intake, diet, Liquid supplement, Weight change Signed: Areli Stone, MS, RD, LD
--- NOTE | 2018-04-24 16:32 | NUR ---
Dr. William was never notified of pt consult and pt was not seen. Dr. Patterson has already discharged this pt back to assisted living and states neuro consult is not needed. Pt is aox4 at this time. Pt does not altered mental status at this time.
--- NOTE | 2018-04-24 18:20 | NUR ---
Pt discharged at this time. Pt did not have bowel movement by 1600. Pt was discharged to [facility] assisted living where she lives.
[2018-04-24] MEDS ORDERED: QUETIAPINE FUMARATE 100 MG TAB PO SCH (21:00)
== END 2018-04-24 18:20 | disposition home or self-care (01) ==
LOC: ER 15:07 → ERHOLD 17:35 → IMCU 18:32
DX: R41.82 Altered mental status, unspecified (principal); E87.6 Hypokalemia; Z88.1 Allergy status to other antibiotic agents
CPT/HCPCS: 36415; 70450; 71046; 80048; 80053; 80320; 82140; 82550; 82553; 83690; 84484; 85025 ×2; 87086; 93005; 99284; G0378 ×2; J3480

== ENCOUNTER 2020-06-04 03:14 | Inpatient (IN) | payer MEDICARE, OTHER ==
[~2020-06-04] VITALS: Ht 157.5 cm; Wt 59.0 kg
[~2020-06-04 03:14] MED LIST: BUSPIRONE HCL5 MG PO; CYCLOBENZAPRINE5 MG PO; DIPHENHYDRAMINE25 MG PO; FAMOTIDINE20 MG PO; FIBERCON625 MG PO; GABAPENTIN400 MG PO; LAMICTAL100 MG PO; LOPERAMIDE2 MG PO; LORATADINE10 MG PO; NAPROXEN250 MG PO; OMEPRAZOLE20 M1 PO; QUETIAPINE FUM100 MG PO; SIMETHICONE80 MG PO; SYNTHROID88 MCG PO; TUMS300 MG PO; ULTRAM50 MG PO; WELLBUTRIN SR150 MG PO; ZOFRAN4 MG/5 ML IV
[2020-06-04] MEDS ORDERED: ONDANSETRON HCL INJ 2MG/ML 2ML 2 MG/ML VIAL IV STA (03:21)
[2020-06-04] MEDS ORDERED: SODIUM CHLORIDE 0.9% 1000ML 1,000 ML IV SCH (03:45)
[2020-06-04] MEDS ORDERED: PANTOPRAZOLE 40 MG 10ML VIAL IV STA (03:46)
[2020-06-04 04:10] LABS: BASOPHILS % 0.1 % (0.0-1.0); HEMATOCRIT 40.6 % (34.2-44.1); HEMOGLOBIN 13.1 g/dL (12.0-16.0); LYMPHOCYTES # (AUTO) 1.2 (1.0-3.2); LYMPHOCYTES % 12.9 % (18.0-39.1); MEAN CORPUSCULAR HEMOGLOBIN 28.2 pg (28-32); MEAN CORPUSCULAR HGB CONC 32.3 g/dL (31-35); MEAN CORPUSCULAR VOLUME 87.5 fL (81-99); MONOCYTES # (AUTO) 0.4 (0.2-0.8); MONOCYTES % 4.4 % (4.4-11.3); NEUTROPHILS # (AUTO) 7.5 (2.1-6.9); NEUTROPHILS % 82.3 % (38.7-80.0); PLATELET COUNT 222 x10e3/uL (140-360); RED BLOOD COUNT 4.64 x10e6/uL (3.6-5.1); RED CELL DISTRIBUTION WIDTH 14.3 % (11.7-14.4)
[2020-06-04 04:24] LABS: LIPASE 13 U/L (8-78)
[2020-06-04 04:51] LABS: ALANINE AMINOTRANSFERASE 10 IU/L (0-55); ALBUMIN 4.3 g/dL (3.5-5.0); ALBUMIN/GLOBULIN RATIO 1.1 (0.8-2.0); ALKALINE PHOSPHATASE 108 IU/L (40-150); ANION GAP 17.1 mmol/L (8-16); BLOOD UREA NITROGEN 11 mg/dL (7-26); BUN/CREATININE RATIO 13 (6-25); CARBON DIOXIDE 23 mmol/L (22-29); CHLORIDE 101 mmol/L (98-107); CREATININE, SERUM 0.84 mg/dL (0.57-1.11); EST GLOMERULAR FILTRATION RATE > 60 ML/MIN (60-); GLUCOSE 115 mg/dL (74-118); POTASSIUM 4.1 mmol/L (3.5-5.1); SODIUM 137 mmol/L (136-145)
[2020-06-04 05:01] LABS: CALCIUM 9.9 mg/dL (8.4-10.2)
[2020-06-04] MEDS ORDERED: IOPAMIDOL 370 MG/ML 200 ML INFUS..BTL INJ ONE (05:25)
[2020-06-04] MEDS ORDERED: SODIUM CHLORIDE 0.9% 50ML 50 ML ONE ×2 (05:26→05:49)
[2020-06-04] MEDS ORDERED: DICYCLOMINE HCL 20 MG/2 ML VIAL IM ONE (05:30)
[2020-06-04] MEDS ORDERED: DIPHENHYDRAMINE HCL INJ 50 MG/ML VIAL IV ONE (05:30)
[2020-06-04] MEDS ORDERED: PROMETHAZINE 12.5MG/ NACL 0.9% 12.5 MG/50 ML BAG IV ONE (05:30)
[2020-06-04] MEDS ORDERED: DIPHENHYDRAMINE HCL INJ 50 MG/ML VIAL ONE (05:48)
[2020-06-04] MEDS ORDERED: PROMETHAZINE 12.5MG/ NACL 0.9% 50 ML ONE (05:49)
[2020-06-04] MEDS ORDERED: BENZOCAINE/TETRACAINE/BUTAMBEN AERO SPRAY 56 GM CAN TOP ONE (07:00)
[2020-06-04 07:16] LABS: AMPHETAMINES SCREEN,URINE NEGATIVE (NEGATIVE); BENZODIAZEPINES SCREEN,URINE NEGATIVE (NEGATIVE); PHENCYCLIDINE SCREEN,URINE NEGATIVE (NEGATIVE)
[2020-06-04] MEDS ORDERED: ONDANSETRON HCL INJ 2MG/ML 2ML 2 MG/ML VIAL IV PRN (07:30)
[2020-06-04] MEDS: SODIUM CHLORIDE 0.9% 1000ML 1,000 ML IV SCH ×2 (07:42→10:09)
[2020-06-04 07:51] LABS: CLARITY,URINE CLEAR (CLEAR); COLOR,URINE YELLOW (YELLOW); KETONES,URINE NEGATIVE (NEGATIVE); LEUKOCYTE ESTERASE ,URINE NEGATIVE (NEGATIVE); NITRITE,URINE NEGATIVE (NEGATIVE); PROTEIN,URINE DIPSTICK TRACE (NEGATIVE)
[2020-06-04 07:52] LABS: URINE UROBILINOGEN 1 mg/dL (0.2 - 1)
[2020-06-04 08:02] LABS: BACTERIA,URINE FEW /HPF; EPITHELIAL CELLS,URINE RARE /LPF; RBC,URINE 0-5 /HPF (0-5)
[2020-06-04] MEDS: MORPHINE SULFATE INJ 2 MG/ML SYR IV PRN ×3 (08:36→18:41)
[2020-06-04 09:30] VITALS: BP 104/66
[2020-06-04 10:00] VITALS: BP 105/66
[2020-06-04] MEDS: PROMETHAZINE 12.5MG/ NACL 0.9% 12.5 MG/50 ML BAG IV PRN (10:23)
[2020-06-04 11:58] VITALS: BP 105/66
[2020-06-04] MEDS ORDERED: SIMETHICONE 80 MG CHEW PO PRN (15:00)
[2020-06-04] MEDS ORDERED: LORATADINE 10 MG TAB PO PRN (15:00)
[2020-06-04] MEDS ORDERED: CALCIUM POLYCARBOPHIL 625 MG TAB PO PRN (15:00)
[2020-06-04] MEDS ORDERED: PANTOPRAZOLE SOD 40 MG TABEC PO PRN (15:00)
[2020-06-04] MEDS ORDERED: NAPROXEN 250 MG TAB PO PRN (15:00)
[2020-06-04] MEDS ORDERED: BUSPIRONE HCL 5 MG TAB PO PRN (15:00)
[2020-06-04] MEDS: TRAMADOL HCL 50 MG TAB PO PRN ×2 (15:28→21:58)
[2020-06-04 16:02] LABS: CREATINE KINASE 39 IU/L (29-168)
[2020-06-04 16:54] VITALS: BP 98/66
[2020-06-04] MEDS ORDERED: FAMOTIDINE 20 MG/2 ML VIAL IV SCH (17:00)
[2020-06-04] MEDS: FAMOTIDINE 20 MG TAB PO SCH (17:37)
[2020-06-04] MEDS: BUPROPION HCL SR 150 MG TAB PO SCH (17:37)
[2020-06-04 20:00] VITALS: BP 87/51
[2020-06-04 21:00] VITALS: BP 87/51
[2020-06-04] MEDS ORDERED: THIAMINE HCL INJ 100 MG/ML 2ML VIAL ONE (21:20)
[2020-06-04] MEDS ORDERED: FOLIC ACID 5 MG/ML VIAL ONE (21:20)
[2020-06-04] MEDS ORDERED: MULTIVITAMINS INJECTION ONE (21:22)
[2020-06-04] MEDS ORDERED: SODIUM CHLORIDE 0.9% 1000ML 1,000 ML ONE (21:23)
[2020-06-04] MEDS: QUETIAPINE FUMARATE 100 MG TAB PO SCH (21:25)
[2020-06-04] MEDS: FOLIC ACID IV SCH (22:13)
[2020-06-04] MEDS: MULTIVITAMINS IV SCH (22:13)
[2020-06-04] MEDS: THIAMINE HCL IV SCH (22:13)
[2020-06-04] MEDS: [UNRECOGNIZED DRUG - OTHER] IV SCH (22:13)
[2020-06-05] VITALS (7 sets, daily range): BP systolic 94–121; BP diastolic 60–83
[2020-06-05] MEDS: FOLIC ACID IV SCH (01:32)
[2020-06-05] MEDS: MULTIVITAMINS IV SCH (01:32)
[2020-06-05] MEDS: [UNRECOGNIZED DRUG - OTHER] IV SCH (01:32)
[2020-06-05] MEDS: THIAMINE HCL IV SCH (01:32)
[2020-06-05] MEDS: MORPHINE SULFATE INJ 2 MG/ML SYR IV PRN ×3 (01:34→11:09)
[2020-06-05] MEDS: TRAMADOL HCL 50 MG TAB PO PRN ×2 (03:57→09:21)
[2020-06-05 05:38] LABS: HEMATOCRIT 31.9 % (34.2-44.1); HEMOGLOBIN 9.8 g/dL (12.0-16.0); LYMPHOCYTES # (AUTO) 1.2 (1.0-3.2); LYMPHOCYTES % 20.5 % (18.0-39.1); MEAN CORPUSCULAR HGB CONC 30.7 g/dL (31-35); MEAN CORPUSCULAR VOLUME 91.1 fL (81-99); MONOCYTES # (AUTO) 0.2 (0.2-0.8); NEUTROPHILS # (AUTO) 4.5 (2.1-6.9); NEUTROPHILS % 75.3 % (38.7-80.0); PLATELET COUNT 154 x10e3/uL (140-360); RED CELL DISTRIBUTION WIDTH 14.2 % (11.7-14.4)
[2020-06-05 06:09] LABS: MAGNESIUM 1.6 MG/DL (1.3-2.1); PHOSPHORUS 2.8 MG/DL (2.3-4.7)
[2020-06-05] MEDS: LEVOTHYROXINE SODIUM 88 MCG TAB PO SCH (06:34)
[2020-06-05 06:39] LABS: ALANINE AMINOTRANSFERASE 6 IU/L (0-55); ALKALINE PHOSPHATASE 81 IU/L (40-150); ANION GAP 14.1 mmol/L (8-16); BLOOD UREA NITROGEN 14 mg/dL (7-26); BUN/CREATININE RATIO 21 (6-25); CALCIUM 8.1 mg/dL (8.4-10.2); CARBON DIOXIDE 22 mmol/L (22-29); CHLORIDE 105 mmol/L (98-107); CREATININE, SERUM 0.67 mg/dL (0.57-1.11); EST GLOMERULAR FILTRATION RATE > 60 ML/MIN (60-); GLUCOSE 75 mg/dL (74-118); POTASSIUM 4.1 mmol/L (3.5-5.1); SODIUM 137 mmol/L (136-145)
[2020-06-05 08:05] LABS: CREATINE KINASE 29 IU/L (29-168)
[2020-06-05] MEDS ORDERED: DIPHENHYDRAMINE HCL ELIX 12.5 MG/5 ML UDC PO ONE (08:30)
[2020-06-05] MEDS: GABAPENTIN 300 MG CAP PO SCH (09:20)
[2020-06-05] MEDS: FAMOTIDINE 20 MG TAB PO SCH ×2 (09:20→18:00)
[2020-06-05] MEDS: BUPROPION HCL SR 150 MG TAB PO SCH ×2 (09:20→18:00)
[2020-06-05] MEDS ORDERED: SIMETHICONE 80 MG CHEW PO PRN (09:45)
[2020-06-05] MEDS ORDERED: LORATADINE 10 MG TAB PO PRN (09:45)
[2020-06-05] MEDS ORDERED: FOLIC ACID IV SCH (11:30)
[2020-06-05] MEDS ORDERED: [UNRECOGNIZED DRUG - OTHER] IV SCH (11:30)
[2020-06-05] MEDS ORDERED: MULTIVITAMINS IV SCH (11:30)
[2020-06-05] MEDS ORDERED: THIAMINE HCL IV SCH (11:30)
[2020-06-05] MEDS ORDERED: MORPHINE SULFATE INJ 2 MG/ML SYR IV PRN (12:00)
[2020-06-05] MEDS: SODIUM CHLORIDE 0.9% 1000ML 1,000 ML IV SCH ×2 (12:31→19:00)
[2020-06-05] MEDS: LORAZEPAM INJ 2 MG/ML VIAL IV PRN ×2 (12:41→20:09)
[2020-06-05] MEDS: QUETIAPINE FUMARATE 100 MG TAB PO SCH (20:18)
[2020-06-06] VITALS (9 sets, daily range): BP systolic 85–127; BP diastolic 53–84
[2020-06-06] MEDS: LORAZEPAM INJ 2 MG/ML VIAL IV PRN (05:15)
[2020-06-06] MEDS: LEVOTHYROXINE SODIUM 88 MCG TAB PO SCH (06:04)
[2020-06-06] MEDS: FAMOTIDINE 20 MG TAB PO SCH ×2 (09:22→17:25)
[2020-06-06] MEDS: GABAPENTIN 300 MG CAP PO SCH (09:22)
[2020-06-06] MEDS: BUPROPION HCL SR 150 MG TAB PO SCH ×2 (09:23→17:25)
[2020-06-06] MEDS: NAPROXEN 250 MG TAB PO PRN (09:25)
[2020-06-06 09:31] LABS: HEMOGLOBIN 10.1 g/dL (12.0-16.0); LYMPHOCYTES # (AUTO) 0.9 (1.0-3.2); LYMPHOCYTES % 19.2 % (18.0-39.1); MEAN CORPUSCULAR HEMOGLOBIN 28.2 pg (28-32); MEAN CORPUSCULAR HGB CONC 32.6 g/dL (31-35); MEAN CORPUSCULAR VOLUME 86.6 fL (81-99); MONOCYTES # (AUTO) 0.3 (0.2-0.8); MONOCYTES % 6.7 % (4.4-11.3); NEUTROPHILS # (AUTO) 3.5 (2.1-6.9); NEUTROPHILS % 73.7 % (38.7-80.0); PLATELET COUNT 165 x10e3/uL (140-360); RED BLOOD COUNT 3.58 x10e6/uL (3.6-5.1); RED CELL DISTRIBUTION WIDTH 13.3 % (11.7-14.4)
[2020-06-06] MEDS: SODIUM CHLORIDE 0.9% 1000ML 1,000 ML IV SCH ×2 (09:33→18:15)
[2020-06-06 09:39] LABS: ANION GAP 13.7 mmol/L (8-16); BLOOD UREA NITROGEN 8 mg/dL (7-26); BUN/CREATININE RATIO 13 (6-25); CALCIUM 8.5 mg/dL (8.4-10.2); CARBON DIOXIDE 25 mmol/L (22-29); CHLORIDE 102 mmol/L (98-107); CREATININE, SERUM 0.61 mg/dL (0.57-1.11); EST GLOMERULAR FILTRATION RATE > 60 ML/MIN (60-); GLUCOSE 100 mg/dL (74-118); MAGNESIUM 1.6 MG/DL (1.3-2.1); POTASSIUM 3.7 mmol/L (3.5-5.1); SODIUM 137 mmol/L (136-145)
[2020-06-06] MEDS: TRAMADOL HCL 50 MG TAB PO PRN ×2 (11:15→17:25)
[2020-06-06] MEDS ORDERED: LORAZEPAM INJ 2 MG/ML VIAL IV PRN (14:30)
[2020-06-06] MEDS: BUSPIRONE HCL 5 MG TAB PO PRN (14:36)
[2020-06-06] MEDS: QUETIAPINE FUMARATE 100 MG TAB PO SCH (20:44)
[2020-06-07] VITALS (7 sets, daily range): BP systolic 87–116; BP diastolic 54–76
[2020-06-07] MEDS: LEVOTHYROXINE SODIUM 88 MCG TAB PO SCH (05:07)
[2020-06-07] MEDS: BUSPIRONE HCL 5 MG TAB PO PRN (05:08)
[2020-06-07] MEDS: BUPROPION HCL SR 150 MG TAB PO SCH ×2 (09:37→17:00)
[2020-06-07] MEDS: FAMOTIDINE 20 MG TAB PO SCH ×2 (09:37→17:00)
[2020-06-07] MEDS: GABAPENTIN 300 MG CAP PO SCH (09:37)
[2020-06-07] MEDS: SODIUM CHLORIDE 0.9% 1000ML 1,000 ML IV SCH ×2 (09:39→14:15)
[2020-06-07] MEDS: TRAMADOL HCL 50 MG TAB PO PRN ×2 (12:22→20:26)
[2020-06-07] MEDS: MIDODRINE HCL 5 MG TABLET PO SCH (17:00)
[2020-06-07] MEDS: ACETAMINOPHEN/CODEINE 300MG - 30MG TAB PO PRN (17:53)
[2020-06-07] MEDS: QUETIAPINE FUMARATE 100 MG TAB PO SCH (20:25)
[2020-06-08] VITALS (10 sets, daily range): BP systolic 59–107; BP diastolic 44–73
[2020-06-08] MEDS: BUSPIRONE HCL 5 MG TAB PO PRN (02:14)
[2020-06-08] MEDS: NAPROXEN 250 MG TAB PO PRN ×3 (02:15→19:33)
[2020-06-08 05:07] LABS: HEMATOCRIT 33.6 % (34.2-44.1); HEMOGLOBIN 10.8 g/dL (12.0-16.0); LYMPHOCYTES # (AUTO) 1.1 (1.0-3.2); LYMPHOCYTES % 35.7 % (18.0-39.1); MEAN CORPUSCULAR HEMOGLOBIN 27.8 pg (28-32); MEAN CORPUSCULAR HGB CONC 32.1 g/dL (31-35); MEAN CORPUSCULAR VOLUME 86.6 fL (81-99); MONOCYTES # (AUTO) 0.3 (0.2-0.8); MONOCYTES % 9.1 % (4.4-11.3); NEUTROPHILS # (AUTO) 1.7 (2.1-6.9); NEUTROPHILS % 55.2 % (38.7-80.0); PLATELET COUNT 196 x10e3/uL (140-360); RED BLOOD COUNT 3.88 x10e6/uL (3.6-5.1); RED CELL DISTRIBUTION WIDTH 13.3 % (11.7-14.4)
[2020-06-08] MEDS: LEVOTHYROXINE SODIUM 88 MCG TAB PO SCH (05:09)
[2020-06-08 05:26] LABS: ANION GAP 13.6 mmol/L (8-16); BLOOD UREA NITROGEN 5 mg/dL (7-26); BUN/CREATININE RATIO 8 (6-25); CALCIUM 8.8 mg/dL (8.4-10.2); CARBON DIOXIDE 25 mmol/L (22-29); CHLORIDE 106 mmol/L (98-107); CREATININE, SERUM 0.62 mg/dL (0.57-1.11); EST GLOMERULAR FILTRATION RATE > 60 ML/MIN (60-); GLUCOSE 83 mg/dL (74-118); MAGNESIUM 1.8 MG/DL (1.3-2.1); POTASSIUM 3.6 mmol/L (3.5-5.1); SODIUM 141 mmol/L (136-145)
[2020-06-08] MEDS: FAMOTIDINE 20 MG TAB PO SCH ×2 (07:58→16:30)
[2020-06-08] MEDS: GABAPENTIN 300 MG CAP PO SCH (07:58)
[2020-06-08] MEDS: BUPROPION HCL SR 150 MG TAB PO SCH ×2 (07:58→16:30)
[2020-06-08] MEDS: MIDODRINE HCL 5 MG TABLET PO SCH ×3 (07:58→16:30)
[2020-06-08] MEDS ORDERED: CEFTRIAXONE SOD 1 GM/50 ML BAG IV SCH (15:00)
[2020-06-08] MEDS: CEFTRIAXONE SOD 1 GM in SODIUM CHLORIDE 0.9% 50ML 50 ML IV SCH (15:30)
[2020-06-08] MEDS: AZITHROMYCIN 500MG/NS 250 ML 250 ML IV SCH (16:00)
[2020-06-08] MEDS: QUETIAPINE FUMARATE 25 MG TAB PO SCH (17:38)
[2020-06-08] MEDS: SODIUM CHLORIDE 0.9% 1000ML 1,000 ML IV SCH (20:15)
[2020-06-08] MEDS: QUETIAPINE FUMARATE 100 MG TAB PO SCH (21:00)
[2020-06-08] MEDS: ACETAMINOPHEN/CODEINE 300MG - 30MG TAB PO PRN (21:37)
[2020-06-08] MEDS: PROMETHAZINE 12.5MG/ NACL 0.9% 12.5 MG/50 ML BAG IV PRN (21:37)
[2020-06-09 00:16] VITALS: BP 93/71
[2020-06-09] MEDS: ALBUTEROL/IPRATROPIUM 3 ML NEB NEB SCH ×4 (00:18→15:15)
[2020-06-09 05:12] VITALS: BP 80/58
[2020-06-09] MEDS: LEVOTHYROXINE SODIUM 88 MCG TAB PO SCH (05:20)
[2020-06-09] MEDS: SODIUM CHLORIDE 0.9% 1000ML 1,000 ML IV SCH ×2 (05:20→16:15)
[2020-06-09] MEDS ORDERED: MIDODRINE HCL5 MG PO (05:55)
[2020-06-09] MEDS ORDERED: SEROQUEL25 MG PO (05:55)
[2020-06-09 06:20] LABS: HEMOGLOBIN 9.6 g/dL (12.0-16.0); LYMPHOCYTES # (AUTO) 1.3 (1.0-3.2); LYMPHOCYTES % 43.2 % (18.0-39.1); MEAN CORPUSCULAR HEMOGLOBIN 28.5 pg (28-32); MONOCYTES # (AUTO) 0.3 (0.2-0.8); MONOCYTES % 8.6 % (4.4-11.3); NEUTROPHILS # (AUTO) 1.4 (2.1-6.9); NEUTROPHILS % 47.9 % (38.7-80.0); PLATELET COUNT 188 x10e3/uL (140-360); RED BLOOD COUNT 3.37 x10e6/uL (3.6-5.1); RED CELL DISTRIBUTION WIDTH 13.2 % (11.7-14.4)
[2020-06-09 07:08] LABS: ALBUMIN 2.5 g/dL (3.5-5.0); ALBUMIN/GLOBULIN RATIO 0.9 (0.8-2.0); ALKALINE PHOSPHATASE 73 IU/L (40-150); ANION GAP 11.7 mmol/L (8-16); BLOOD UREA NITROGEN 10 mg/dL (7-26); BUN/CREATININE RATIO 16 (6-25); CALCIUM 7.7 mg/dL (8.4-10.2); CARBON DIOXIDE 24 mmol/L (22-29); CHLORIDE 112 mmol/L (98-107); CREATININE, SERUM 0.64 mg/dL (0.57-1.11); EST GLOMERULAR FILTRATION RATE > 60 ML/MIN (60-); GLUCOSE 70 mg/dL (74-118); MAGNESIUM 1.7 MG/DL (1.3-2.1); POTASSIUM 3.7 mmol/L (3.5-5.1); SODIUM 144 mmol/L (136-145)
[2020-06-09 07:39] LABS: ALANINE AMINOTRANSFERASE < 6 IU/L (0-55)
[2020-06-09] MEDS: MIDODRINE HCL 5 MG TABLET PO SCH ×3 (08:00→16:00)
[2020-06-09 08:27] VITALS: BP 93/70
[2020-06-09 08:49] VITALS: BP 93/70
[2020-06-09] MEDS: QUETIAPINE FUMARATE 25 MG TAB PO SCH ×2 (09:00→16:52)
[2020-06-09] MEDS: GUAIFENESIN 600MG/DEXTROMETHORPHAN 30MG TABSR PO SCH ×2 (09:00→16:52)
[2020-06-09] MEDS: GABAPENTIN 300 MG CAP PO SCH (09:00)
[2020-06-09] MEDS: FAMOTIDINE 20 MG TAB PO SCH ×2 (09:00→16:52)
[2020-06-09] MEDS: BUPROPION HCL SR 150 MG TAB PO SCH ×2 (09:00→16:53)
[2020-06-09] MEDS: ACETAMINOPHEN/CODEINE 300MG - 30MG TAB PO PRN (11:32)
[2020-06-09 12:06] VITALS: BP 97/71
[2020-06-09] MEDS: BUSPIRONE HCL 5 MG TAB PO PRN ×2 (13:34→13:39)
[2020-06-09] MEDS ORDERED: ZITHROMAX500 MG PO (14:39)
[2020-06-09] MEDS ORDERED: CEFDINIR300 MG PO (14:39)
[2020-06-09] MEDS: CEFTRIAXONE SOD 1 GM in SODIUM CHLORIDE 0.9% 50ML 50 ML IV SCH (15:30)
[2020-06-09] MEDS: AZITHROMYCIN 500MG/NS 250 ML 250 ML IV SCH (16:00)
== END 2020-06-09 19:23 | disposition home health service (06) | DRG 388 ==
LOC: ER 03:23 → ERHOLD 07:20 → MED/SURG2 08:54
PROVIDERS: ADMIT Internal Medicine; ATTEND Internal Medicine
PROC: 02HV33Z Insertion of Infusion Device into Superior Vena Cava, Percutaneous Approach (ICD-10-PCS; principal; 2020-06-08)
PROC: B548ZZA Ultrasonography of Superior Vena Cava, Guidance (ICD-10-PCS; 2020-06-08)
DX: K56.609 Unspecified intestinal obstruction, unspecified as to partial versus complete obstruction (principal); J15.9 Unspecified bacterial pneumonia; J18.9 Pneumonia, unspecified organism; I10 Essential (primary) hypertension; Z98.84 Bariatric surgery status; Z87.442 Personal history of urinary calculi; E78.5 Hyperlipidemia, unspecified; Z88.1 Allergy status to other antibiotic agents; Z90.49 Acquired absence of other specified parts of digestive tract; Z82.49 Family history of ischemic heart disease and other diseases of the circulatory system; Z80.1 Family history of malignant neoplasm of trachea, bronchus and lung; Z80.0 Family history of malignant neoplasm of digestive organs; F10.21 Alcohol dependence, in remission; E89.0 Postprocedural hypothyroidism; F31.9 Bipolar disorder, unspecified; E83.42 Hypomagnesemia; I95.9 Hypotension, unspecified; D64.9 Anemia, unspecified; Z20.822 Contact with and (suspected) exposure to COVID-19
CPT/HCPCS: 36415; 70450; 71045; 71250; 74018; 74019; 74177; 80048; 80053; 80307; 81001; 82140; 82550; 82553; 83690; 83735; 84100; 84484; 85025; 87086; 93005; 94640; 96361; 99285; J0456; J0500; J0696; J1200; J2060; J2270; J2405; J2550; J3411; J7030; Q9967; U0002

== ENCOUNTER 2020-08-12 01:28 | Inpatient (IN) | payer MEDICARE, OTHER ==
[2020-08-12] VITALS (7 sets, daily range): BP systolic 99–113; BP diastolic 68–78
[~2020-08-12] VITALS: Ht 157.5 cm; Wt 46.7 kg
[~2020-08-12 01:28] MED LIST changes: +CEFDINIR300 MG PO; +MIDODRINE HCL5 MG PO; +SEROQUEL25 MG PO; +ZITHROMAX500 MG PO
[2020-08-12] MEDS ORDERED: ONDANSETRON HCL INJ 2MG/ML 2ML 2 MG/ML VIAL IV STA (01:49)
[2020-08-12 01:55] LABS: HEMATOCRIT 36.3 % (34.2-44.1); HEMOGLOBIN 11.9 g/dL (12.0-16.0); LYMPHOCYTES % 18.7 % (18.0-39.1); MEAN CORPUSCULAR HEMOGLOBIN 28.4 pg (28-32); MEAN CORPUSCULAR HGB CONC 32.8 g/dL (31-35); MEAN CORPUSCULAR VOLUME 86.6 fL (81-99); MONOCYTES # (AUTO) 0.2 (0.2-0.8); MONOCYTES % 4.3 % (4.4-11.3); NEUTROPHILS # (AUTO) 4.2 (2.1-6.9); NEUTROPHILS % 76.8 % (38.7-80.0); PLATELET COUNT 180 x10e3/uL (140-360); RED BLOOD COUNT 4.19 x10e6/uL (3.6-5.1); RED CELL DISTRIBUTION WIDTH 13.5 % (11.7-14.4)
[2020-08-12] MEDS ORDERED: SODIUM CHLORIDE 0.9% 1000ML 1,000 ML IV ONE (02:00)
[2020-08-12 02:22] LABS: ALANINE AMINOTRANSFERASE 24 IU/L (0-55); ALBUMIN 4.3 g/dL (3.5-5.0); ALBUMIN/GLOBULIN RATIO 1.3 (0.8-2.0); ALKALINE PHOSPHATASE 110 IU/L (40-150); BLOOD UREA NITROGEN 9 mg/dL (7-26); BUN/CREATININE RATIO 11 (6-25); CARBON DIOXIDE 26 mmol/L (22-29); CHLORIDE 97 mmol/L (98-107); CREATINE KINASE 86 IU/L (29-168); CREATININE, SERUM 0.81 mg/dL (0.57-1.11); EST GLOMERULAR FILTRATION RATE > 60 ML/MIN (60-); GLUCOSE 121 mg/dL (74-118); SODIUM 136 mmol/L (136-145)
[2020-08-12 02:23] LABS: AMYLASE 59 U/L (25-125); LIPASE 16 U/L (8-78)
[2020-08-12 02:28] LABS: CALCIUM 10.1 mg/dL (8.4-10.2)
[2020-08-12 03:19] LABS: BACTERIA,URINE FEW /HPF; CLARITY,URINE CLEAR (CLEAR); COLOR,URINE YELLOW (YELLOW); EPITHELIAL CELLS,URINE FEW /LPF; KETONES,URINE NEGATIVE (NEGATIVE); LEUKOCYTE ESTERASE ,URINE NEGATIVE (NEGATIVE); NITRITE,URINE NEGATIVE (NEGATIVE); PROTEIN,URINE DIPSTICK NEGATIVE (NEGATIVE); RBC,URINE 0-5 /HPF (0-5); URINE UROBILINOGEN 0.2 mg/dL (0.2 - 1); WBC,URINE (MAN) 0-5 /HPF (0-5)
[2020-08-12] MEDS: ONDANSETRON HCL INJ 2MG/ML 2ML 2 MG/ML VIAL IV PRN ×4 (04:28→17:47)
[2020-08-12] MEDS: SODIUM CHLORIDE 0.9% 1000ML 1,000 ML IV SCH ×3 (04:50→14:00)
[2020-08-12] MEDS ORDERED: SODIUM CHLORIDE 0.9% 50ML 50 ML ONE (06:26)
[2020-08-12] MEDS ORDERED: IOPAMIDOL 370 MG/ML 200 ML INFUS..BTL INJ ONE (06:26)
[2020-08-12] MEDS: MORPHINE SULFATE INJ 4 MG/ML INJ 1ML IV PRN ×3 (08:45→17:47)
[2020-08-12] MEDS ORDERED: HYDRALAZINE HCL 20 MG/ML VIAL IV PRN (11:15)
[2020-08-12] MEDS ORDERED: BISACODYL 10 MG SUPP PR ONE (11:15)
[2020-08-12] MEDS ORDERED: BISACODYL 10 MG SUPP PR PRN (11:15)
[2020-08-12] MEDS: LEVOTHYROXINE SODIUM 100 MCG/VIAL IV SCH (11:15)
[2020-08-12] MEDS ORDERED: ZIPRASIDONE 20 MG VIAL IM PRN (11:15)
[2020-08-12] MEDS ORDERED: PIPERACILLIN/TAZOBACTAM 3.375 GM in SODIUM CHLORIDE 0.9% 50ML 50 ML IV ONE (11:30)
[2020-08-13] VITALS (8 sets, daily range): BP systolic 102–122; BP diastolic 62–77
[2020-08-13] MEDS: SODIUM CHLORIDE 0.9% 1000ML 1,000 ML IV SCH ×3 (01:41→22:26)
[2020-08-13] MEDS: MORPHINE SULFATE INJ 4 MG/ML INJ 1ML IV PRN ×4 (01:49→19:48)
[2020-08-13] MEDS: ONDANSETRON HCL INJ 2MG/ML 2ML 2 MG/ML VIAL IV PRN ×4 (01:49→19:48)
[2020-08-13] MEDS: LEVOTHYROXINE SODIUM 100 MCG/VIAL IV SCH (05:09)
[2020-08-13] MEDS: LORAZEPAM INJ 2 MG/ML VIAL IV PRN ×2 (05:28→20:55)
[2020-08-13 06:46] LABS: BASOPHILS % 0.2 % (0.0-1.0); HEMATOCRIT 34.6 % (34.2-44.1); HEMOGLOBIN 10.9 g/dL (12.0-16.0); LYMPHOCYTES # (AUTO) 1.7 (1.0-3.2); LYMPHOCYTES % 33.9 % (18.0-39.1); MEAN CORPUSCULAR HEMOGLOBIN 28.3 pg (28-32); MEAN CORPUSCULAR HGB CONC 31.5 g/dL (31-35); MEAN CORPUSCULAR VOLUME 89.9 fL (81-99); MONOCYTES # (AUTO) 0.3 (0.2-0.8); MONOCYTES % 5.8 % (4.4-11.3); NEUTROPHILS # (AUTO) 3.1 (2.1-6.9); NEUTROPHILS % 59.9 % (38.7-80.0); PLATELET COUNT 200 x10e3/uL (140-360); RED BLOOD COUNT 3.85 x10e6/uL (3.6-5.1); RED CELL DISTRIBUTION WIDTH 13.6 % (11.7-14.4)
[2020-08-13 07:13] LABS: ALANINE AMINOTRANSFERASE 25 IU/L (0-55); ALBUMIN 3.5 g/dL (3.5-5.0); ALBUMIN/GLOBULIN RATIO 1.2 (0.8-2.0); ALKALINE PHOSPHATASE 106 IU/L (40-150); ANION GAP 14.1 mmol/L (8-16); BLOOD UREA NITROGEN 8 mg/dL (7-26); BUN/CREATININE RATIO 11 (6-25); CALCIUM 9.1 mg/dL (8.4-10.2); CARBON DIOXIDE 26 mmol/L (22-29); CHLORIDE 105 mmol/L (98-107); CREATININE, SERUM 0.73 mg/dL (0.57-1.11); EST GLOMERULAR FILTRATION RATE > 60 ML/MIN (60-); GLUCOSE 91 mg/dL (74-118); POTASSIUM 4.1 mmol/L (3.5-5.1); SODIUM 141 mmol/L (136-145)
[2020-08-13] MEDS ORDERED: MORPHINE SULFATE INJ 2 MG/ML SYR ONE (08:05)
[2020-08-14] VITALS (9 sets, daily range): BP systolic 92–110; BP diastolic 59–75
[2020-08-14] MEDS: LORAZEPAM INJ 2 MG/ML VIAL IV PRN ×2 (01:23→23:49)
[2020-08-14] MEDS: LEVOTHYROXINE SODIUM 100 MCG/VIAL IV SCH (05:50)
[2020-08-14] MEDS: SODIUM CHLORIDE 0.9% 1000ML 1,000 ML IV SCH ×2 (05:50→16:10)
[2020-08-14] MEDS ORDERED: ENOXAPARIN SOD INJ 40 MG/0.4 ML SYR SC ONE (09:25)
[2020-08-14] MEDS: MORPHINE SULFATE INJ 4 MG/ML INJ 1ML IV PRN (13:42)
[2020-08-15] MEDS: SODIUM CHLORIDE 0.9% 1000ML 1,000 ML IV SCH ×2 (02:58→12:54)
[2020-08-15 04:00] VITALS: BP 101/69
[2020-08-15] MEDS: LEVOTHYROXINE SODIUM 100 MCG/VIAL IV SCH (06:16)
[2020-08-15 08:06] LABS: BASOPHILS % 0.3 % (0.0-1.0); HEMATOCRIT 30.8 % (34.2-44.1); HEMOGLOBIN 9.9 g/dL (12.0-16.0); LYMPHOCYTES # (AUTO) 1.4 (1.0-3.2); LYMPHOCYTES % 35.3 % (18.0-39.1); MEAN CORPUSCULAR HEMOGLOBIN 28.5 pg (28-32); MEAN CORPUSCULAR HGB CONC 32.1 g/dL (31-35); MEAN CORPUSCULAR VOLUME 88.8 fL (81-99); MONOCYTES # (AUTO) 0.3 (0.2-0.8); MONOCYTES % 7.9 % (4.4-11.3); NEUTROPHILS # (AUTO) 2.2 (2.1-6.9); PLATELET COUNT 175 x10e3/uL (140-360); RED BLOOD COUNT 3.47 x10e6/uL (3.6-5.1)
[2020-08-15 08:40] LABS: ANION GAP 18.1 mmol/L (8-16); BLOOD UREA NITROGEN 9 mg/dL (7-26); BUN/CREATININE RATIO 15 (6-25); CALCIUM 7.8 mg/dL (8.4-10.2); CARBON DIOXIDE 15 mmol/L (22-29); CHLORIDE 110 mmol/L (98-107); CREATININE, SERUM 0.61 mg/dL (0.57-1.11); EST GLOMERULAR FILTRATION RATE > 60 ML/MIN (60-); GLUCOSE 61 mg/dL (74-118); POTASSIUM 3.1 mmol/L (3.5-5.1); SODIUM 140 mmol/L (136-145)
[2020-08-15 08:41] VITALS: BP 111/66
[2020-08-15] MEDS ORDERED: BUPIVACAINE HCL 0.5% INJ 30 ML VIAL INJ ONE (08:59)
[2020-08-15 09:35] VITALS: BP 111/66
[2020-08-15 12:10] VITALS: BP 104/77
[2020-08-15 15:42] VITALS: BP 114/77
[2020-08-15] MEDS: LORAZEPAM INJ 2 MG/ML VIAL IV PRN ×2 (16:08→21:09)
[2020-08-15 20:00] VITALS: BP 106/73
[2020-08-16] VITALS (8 sets, daily range): BP systolic 103–130; BP diastolic 64–87
[2020-08-16] MEDS: SODIUM CHLORIDE 0.9% 1000ML 1,000 ML IV SCH ×3 (00:55→20:14)
[2020-08-16] MEDS: LEVOTHYROXINE SODIUM 100 MCG/VIAL IV SCH (05:13)
[2020-08-16] MEDS: LORAZEPAM INJ 2 MG/ML VIAL IV PRN ×4 (05:14→20:14)
[2020-08-16 05:18] LABS: BASOPHILS % 0.2 % (0.0-1.0); HEMATOCRIT 31.9 % (34.2-44.1); HEMOGLOBIN 10.7 g/dL (12.0-16.0); LYMPHOCYTES # (AUTO) 1.3 (1.0-3.2); LYMPHOCYTES % 30.8 % (18.0-39.1); MEAN CORPUSCULAR HEMOGLOBIN 28.5 pg (28-32); MEAN CORPUSCULAR HGB CONC 33.5 g/dL (31-35); MEAN CORPUSCULAR VOLUME 84.8 fL (81-99); MONOCYTES # (AUTO) 0.3 (0.2-0.8); MONOCYTES % 7.7 % (4.4-11.3); NEUTROPHILS # (AUTO) 2.5 (2.1-6.9); NEUTROPHILS % 60.6 % (38.7-80.0); PLATELET COUNT 203 x10e3/uL (140-360); RED BLOOD COUNT 3.76 x10e6/uL (3.6-5.1)
[2020-08-16 05:41] LABS: ANION GAP 14.5 mmol/L (8-16); BLOOD UREA NITROGEN 6 mg/dL (7-26); BUN/CREATININE RATIO 10 (6-25); CALCIUM 8.7 mg/dL (8.4-10.2); CARBON DIOXIDE 18 mmol/L (22-29); CHLORIDE 108 mmol/L (98-107); CREATININE, SERUM 0.63 mg/dL (0.57-1.11); EST GLOMERULAR FILTRATION RATE > 60 ML/MIN (60-); GLUCOSE 84 mg/dL (74-118); POTASSIUM 3.5 mmol/L (3.5-5.1); SODIUM 137 mmol/L (136-145)
[2020-08-17] VITALS (7 sets, daily range): BP systolic 93–135; BP diastolic 67–79
[2020-08-17] MEDS: LORAZEPAM INJ 2 MG/ML VIAL IV PRN (01:01)
[2020-08-17] MEDS: SODIUM CHLORIDE 0.9% 1000ML 1,000 ML IV SCH ×2 (04:00→09:29)
[2020-08-17] MEDS: LEVOTHYROXINE SODIUM 100 MCG/VIAL IV SCH (05:21)
[2020-08-17] MEDS ORDERED: BUPIVACAINE HCL 0.5% INJ 30 ML VIAL INJ ONE (10:41)
[2020-08-17] MEDS: DEXTROSE 5%/0.45% SOD CHL 1,000 ML IV SCH ×2 (12:00→15:00)
[2020-08-17] MEDS: ONDANSETRON HCL INJ 2MG/ML 2ML 2 MG/ML VIAL ONE ×2 (12:30→13:17)
[2020-08-17] MEDS: FENTANYL CITRATE/PF 100MCG/2 ML INJ ONE ×2 (12:41→13:17)
[2020-08-17] MEDS ORDERED: POVIDONE IODINE 0.05% 0.05 % ML PO ONE (13:00)
[2020-08-17] MEDS ORDERED: DEXAMETHASONE SOD PHOS INJ 4 MG/ML VIAL ONE (13:00)
[2020-08-17] MEDS ORDERED: ONDANSETRON HCL INJ 2MG/ML 2ML 2 MG/ML VIAL ONE (13:00)
[2020-08-17] MEDS ORDERED: ROCURONIUM BROMIDE 10 MG/ML 5ML VIAL IV ONE (13:00)
[2020-08-17] MEDS ORDERED: LIDOCAINE HCL 2% LOCAL INJ 5 ML SDV VIAL INJ ONE (13:00)
[2020-08-17] MEDS ORDERED: SEVOFLURANE INHAL SOLN 250 ML PEN BTL ONE (13:00)
[2020-08-17] MEDS ORDERED: PROPOFOL IV EMULSION 10 MG/ML 20 ML VIAL ONE (13:00)
[2020-08-17] MEDS ORDERED: WATER STERILE 10 ML VIAL INJ PRN (13:15)
[2020-08-17] MEDS ORDERED: MIDAZOLAM HCL 2 MG/2 ML VIAL ONE (13:41)
[2020-08-17] MEDS ORDERED: FENTANYL CITRATE/PF 100MCG/2 ML INJ ONE (13:41)
[2020-08-17] MEDS: MORPHINE SULFATE INJ 4 MG/ML INJ 1ML IV PRN (21:07)
[2020-08-17] MEDS: ONDANSETRON HCL INJ 2MG/ML 2ML 2 MG/ML VIAL IV PRN (21:07)
[2020-08-18] VITALS (8 sets, daily range): BP systolic 89–110; BP diastolic 52–74
[2020-08-18] MEDS: DEXTROSE 5%/0.45% SOD CHL 1,000 ML IV SCH ×2 (00:13→09:17)
[2020-08-18] MEDS: MORPHINE SULFATE INJ 4 MG/ML INJ 1ML IV PRN ×4 (00:22→23:04)
[2020-08-18] MEDS: LEVOTHYROXINE SODIUM 100 MCG/VIAL IV SCH (06:24)
[2020-08-18 08:04] LABS: HEMATOCRIT 31.9 % (34.2-44.1); LYMPHOCYTES # (AUTO) 1.9 (1.0-3.2); MEAN CORPUSCULAR HEMOGLOBIN 28.9 pg (28-32); MEAN CORPUSCULAR HGB CONC 34.5 g/dL (31-35); MEAN CORPUSCULAR VOLUME 83.9 fL (81-99); MONOCYTES # (AUTO) 0.4 (0.2-0.8); MONOCYTES % 8.3 % (4.4-11.3); NEUTROPHILS # (AUTO) 2.7 (2.1-6.9); NEUTROPHILS % 53.9 % (38.7-80.0); PLATELET COUNT 214 x10e3/uL (140-360); RED CELL DISTRIBUTION WIDTH 13.2 % (11.7-14.4)
[2020-08-18 08:28] LABS: ANION GAP 12.9 mmol/L (8-16); BLOOD UREA NITROGEN < 5 mg/dL (7-26); CALCIUM 8.1 mg/dL (8.4-10.2); CARBON DIOXIDE 23 mmol/L (22-29); CHLORIDE 108 mmol/L (98-107); EST GLOMERULAR FILTRATION RATE > 60 ML/MIN (60-); GLUCOSE 128 mg/dL (74-118); SODIUM 141 mmol/L (136-145)
[2020-08-18 08:40] LABS: BUN/CREATININE RATIO 8 (6-25)
[2020-08-18 08:42] LABS: POTASSIUM 2.9 mmol/L (3.5-5.1)
[2020-08-18 08:43] LABS: MAGNESIUM 1.3 MG/DL (1.3-2.1)
[2020-08-18] MEDS ORDERED: POTASSIUM CHL 40 MEQ in SODIUM CHLORIDE 0.9% 250ML 230 ML IV STA (08:46)
[2020-08-18] MEDS ORDERED: MAGNESIUM SULFATE 2GM/50ML 50 ML IV ONE (10:30)
[2020-08-18] MEDS: D5.45%NS/KCL 20MEQ 1,000 ML IV SCH (11:42)
[2020-08-18] MEDS: ONDANSETRON HCL INJ 2MG/ML 2ML 2 MG/ML VIAL IV PRN ×2 (11:46→23:04)
[2020-08-18] MEDS ORDERED: POTASSIUM PHOSPHATE 30 MM in SODIUM CHLORIDE 0.9% 250ML 250 ML IV ONE (13:00)
[2020-08-18] MEDS: LORAZEPAM INJ 2 MG/ML VIAL IV PRN ×2 (18:30→23:03)
[2020-08-19] VITALS (10 sets, daily range): BP systolic 92–135; BP diastolic 55–89
[2020-08-19] MEDS: MORPHINE SULFATE INJ 4 MG/ML INJ 1ML IV PRN (05:57)
[2020-08-19] MEDS: D5.45%NS/KCL 20MEQ 1,000 ML IV SCH ×2 (05:59→06:30)
[2020-08-19] MEDS: LEVOTHYROXINE SODIUM 100 MCG/VIAL IV SCH (05:59)
[2020-08-19 07:52] LABS: ANION GAP 10.8 mmol/L (8-16); BLOOD UREA NITROGEN < 5 mg/dL (7-26); CALCIUM 7.6 mg/dL (8.4-10.2); CARBON DIOXIDE 23 mmol/L (22-29); CHLORIDE 109 mmol/L (98-107); CREATININE, SERUM 0.62 mg/dL (0.57-1.11); EST GLOMERULAR FILTRATION RATE > 60 ML/MIN (60-); GLUCOSE 360 mg/dL (74-118); POTASSIUM 4.8 mmol/L (3.5-5.1); SODIUM 138 mmol/L (136-145)
[2020-08-19 07:53] LABS: MAGNESIUM 1.6 MG/DL (1.3-2.1); PHOSPHORUS 2.8 MG/DL (2.3-4.7)
[2020-08-19 07:54] LABS: BUN/CREATININE RATIO 8 (6-25)
[2020-08-19] MEDS: HYDROCODONE/APAP 5MG-325MG TAB PO PRN ×4 (08:28→22:06)
[2020-08-19] MEDS ORDERED: NAPROXEN 250 MG TAB PO PRN (10:30)
[2020-08-19] MEDS ORDERED: PANTOPRAZOLE SOD 40 MG TABEC PO PRN (10:30)
[2020-08-19] MEDS ORDERED: MIDODRINE HCL 5 MG TABLET PO SCH (10:30)
[2020-08-19] MEDS ORDERED: CYCLOBENZAPRINE HCL 10 MG TAB PO PRN (10:45)
[2020-08-19] MEDS: LORATADINE 10 MG TAB PO SCH ×2 (12:11→16:25)
[2020-08-19] MEDS: MIDODRINE HCL 5 MG TABLET PO SCH ×2 (12:12→16:25)
[2020-08-19] MEDS: BUPROPION HCL SR 150 MG TAB PO SCH ×2 (12:12→16:25)
[2020-08-19] MEDS: FAMOTIDINE 20 MG TAB PO SCH ×2 (12:12→16:25)
[2020-08-19] MEDS: DIPHENHYDRAMINE HCL 25 MG CAP PO PRN ×2 (13:00→19:35)
[2020-08-19] MEDS ORDERED: SODIUM CHLORIDE 0.9% 50ML 50 ML ONE (14:32)
[2020-08-19] MEDS ORDERED: IOPAMIDOL 370 MG/ML 200 ML INFUS..BTL INJ ONE (14:33)
[2020-08-19] MEDS: QUETIAPINE FUMARATE 100 MG TAB PO SCH (19:35)
[2020-08-20] VITALS (8 sets, daily range): BP systolic 78–126; BP diastolic 52–86
[2020-08-20 05:55] LABS: HEMATOCRIT 32.4 % (34.2-44.1); HEMOGLOBIN 10.6 g/dL (12.0-16.0); LYMPHOCYTES # (AUTO) 1.7 (1.0-3.2); LYMPHOCYTES % 37.8 % (18.0-39.1); MEAN CORPUSCULAR HEMOGLOBIN 28.5 pg (28-32); MEAN CORPUSCULAR HGB CONC 32.7 g/dL (31-35); MEAN CORPUSCULAR VOLUME 87.1 fL (81-99); MONOCYTES # (AUTO) 0.3 (0.2-0.8); MONOCYTES % 6.2 % (4.4-11.3); NEUTROPHILS # (AUTO) 2.4 (2.1-6.9); NEUTROPHILS % 55.3 % (38.7-80.0); PLATELET COUNT 180 x10e3/uL (140-360); RED BLOOD COUNT 3.72 x10e6/uL (3.6-5.1); RED CELL DISTRIBUTION WIDTH 13.8 % (11.7-14.4)
[2020-08-20] MEDS: LEVOTHYROXINE SODIUM 88 MCG TAB PO SCH (05:57)
[2020-08-20 06:24] LABS: ANION GAP 11.4 mmol/L (8-16); BLOOD UREA NITROGEN 5 mg/dL (7-26); BUN/CREATININE RATIO 8 (6-25); CALCIUM 8.4 mg/dL (8.4-10.2); CARBON DIOXIDE 26 mmol/L (22-29); CHLORIDE 107 mmol/L (98-107); CREATININE, SERUM 0.62 mg/dL (0.57-1.11); EST GLOMERULAR FILTRATION RATE > 60 ML/MIN (60-); GLUCOSE 87 mg/dL (74-118); POTASSIUM 3.4 mmol/L (3.5-5.1); SODIUM 141 mmol/L (136-145)
[2020-08-20] MEDS: MIDODRINE HCL 5 MG TABLET PO SCH ×3 (08:40→15:29)
[2020-08-20] MEDS: BUPROPION HCL SR 150 MG TAB PO SCH ×2 (08:40→17:07)
[2020-08-20] MEDS: LORATADINE 10 MG TAB PO SCH ×2 (08:40→17:06)
[2020-08-20] MEDS: FAMOTIDINE 20 MG TAB PO SCH ×2 (08:40→15:29)
[2020-08-20] MEDS ORDERED: POTASSIUM CHLORIDE 10MEQ EA PO NR (09:30)
[2020-08-20] MEDS ORDERED: BISACODYL 10 MG SUPP PR NR (10:15)
[2020-08-20] MEDS ORDERED: MAGNESIUM HYDROXIDE 30 ML UDC PO NR (10:15)
[2020-08-20] MEDS: SENNA-S TABLET PO SCH ×2 (11:02→17:06)
[2020-08-20] MEDS: HYDROCODONE/APAP 5MG-325MG TAB PO PRN ×2 (11:11→19:40)
[2020-08-20] MEDS ORDERED: PHENYLEPHRINE HCL 1% 10 MG/ML VIAL ONE (12:50)
[2020-08-20] MEDS: QUETIAPINE FUMARATE 25 MG TAB PO SCH ×2 (12:51→17:06)
[2020-08-20] MEDS: QUETIAPINE FUMARATE 100 MG TAB PO SCH (21:44)
[2020-08-20] MEDS ORDERED: GABAPENTIN 400 MG CAP PO SCH (22:04)
[2020-08-21] VITALS: BP 83/65
[2020-08-21 04:00] VITALS: BP 94/71
[2020-08-21] MEDS: LEVOTHYROXINE SODIUM 88 MCG TAB PO SCH (06:30)
[2020-08-21] MEDS: FAMOTIDINE 20 MG TAB PO SCH (07:30)
[2020-08-21 07:42] VITALS: BP 90/65
[2020-08-21] MEDS: MIDODRINE HCL 5 MG TABLET PO SCH (08:00)
[2020-08-21 08:53] VITALS: BP 90/65
[2020-08-21] MEDS: BUPROPION HCL SR 150 MG TAB PO SCH (09:00)
[2020-08-21] MEDS: SENNA-S TABLET PO SCH (09:00)
[2020-08-21] MEDS: LORATADINE 10 MG TAB PO SCH (09:00)
[2020-08-21] MEDS ORDERED: GABAPENTIN 300 MG CAP PO SCH (09:00)
[2020-08-21] MEDS: QUETIAPINE FUMARATE 25 MG TAB PO SCH (09:00)
[2020-08-21 11:48] VITALS: BP 91/63
[2020-08-21] MEDS ORDERED: GABAPENTIN 400 MG CAP PO SCH (21:00)
== END 2020-08-21 13:35 | disposition home health service (06) | DRG 327 ==
LOC: ER 01:32 → ERHOLD 04:01 → MED/SURG 07:37 → MED/SURG3 08-15 02:30
PROVIDERS: ADMIT Internal Medicine; ATTEND Internal Medicine
PROC: 02HV33Z Insertion of Infusion Device into Superior Vena Cava, Percutaneous Approach (ICD-10-PCS; 2020-08-12)
PROC: 0DN64ZZ Release Stomach, Percutaneous Endoscopic Approach (ICD-10-PCS; 2020-08-17)
PROC: 0DNA4ZZ Release Jejunum, Percutaneous Endoscopic Approach (ICD-10-PCS; principal; 2020-08-17 12:30)
DX: K95.89 Other complications of other bariatric procedure (principal); K56.50 Intestinal adhesions [bands], unspecified as to partial versus complete obstruction; F10.231 Alcohol dependence with withdrawal delirium; Z98.0 Intestinal bypass and anastomosis status; I10 Essential (primary) hypertension; Z98.84 Bariatric surgery status; Z87.442 Personal history of urinary calculi; F17.200 Nicotine dependence, unspecified, uncomplicated; F10.20 Alcohol dependence, uncomplicated; F41.9 Anxiety disorder, unspecified; F32.9 Major depressive disorder, single episode, unspecified; Z20.822 Contact with and (suspected) exposure to COVID-19
CPT/HCPCS: 36415; 36569; 71045; 74019; 74177; 80048; 80053; 81001; 82150; 82550; 82553; 83690; 83735; 84100; 84484; 85025; 93005; 96361; 97139; 99284; J0360; J1100; J1650; J2001; J2060; J2250; J2270; J2370; J2405; J2543; J3010; J3475; J3480; J3486; J7030; J7050; Q9967; U0002

== ENCOUNTER 2020-08-24 21:19 | Emergency (ER) | payer OTHER, MEDICARE ==
[~2020-08-24] VITALS: Ht 157.5 cm; Wt 46.7 kg
[2020-08-24] MEDS ORDERED: SODIUM CHLORIDE 0.9% 1000ML 1,000 ML IV STA (21:22)
[2020-08-24] MEDS ORDERED: ASPIRIN 81 MG CHEW TAB PO ONE (21:30)
[2020-08-24 21:44] LABS: BASOPHILS % 0.1 % (0.0-1.0); HEMATOCRIT 33.2 % (34.2-44.1); HEMOGLOBIN 10.8 g/dL (12.0-16.0); LYMPHOCYTES # (AUTO) 1.3 (1.0-3.2); LYMPHOCYTES % 10.2 % (18.0-39.1); MEAN CORPUSCULAR HEMOGLOBIN 28.6 pg (28-32); MEAN CORPUSCULAR HGB CONC 32.5 g/dL (31-35); MEAN CORPUSCULAR VOLUME 87.8 fL (81-99); MONOCYTES # (AUTO) 0.7 (0.2-0.8); MONOCYTES % 5.2 % (4.4-11.3); NEUTROPHILS # (AUTO) 10.8 (2.1-6.9); PLATELET COUNT 257 x10e3/uL (140-360); RED BLOOD COUNT 3.78 x10e6/uL (3.6-5.1); RED CELL DISTRIBUTION WIDTH 13.8 % (11.7-14.4)
[2020-08-24 21:52] LABS: ALANINE AMINOTRANSFERASE 18 IU/L (0-55); ALBUMIN 3.8 g/dL (3.5-5.0); ALBUMIN/GLOBULIN RATIO 1.4 (0.8-2.0); ALKALINE PHOSPHATASE 92 IU/L (40-150); ANION GAP 13.5 mmol/L (8-16); BLOOD UREA NITROGEN 9 mg/dL (7-26); BUN/CREATININE RATIO 11 (6-25); CARBON DIOXIDE 27 mmol/L (22-29); CHLORIDE 106 mmol/L (98-107); CREATINE KINASE 2330 IU/L (29-168); CREATININE, SERUM 0.84 mg/dL (0.57-1.11); EST GLOMERULAR FILTRATION RATE > 60 ML/MIN (60-); GLUCOSE 107 mg/dL (74-118); POTASSIUM 3.5 mmol/L (3.5-5.1); SODIUM 143 mmol/L (136-145)
== END 2020-08-24 23:59 | disposition other institution (70) ==
LOC: ER 21:59
DX: R55 Syncope and collapse (principal); S06.5X0A Traumatic subdural hemorrhage without loss of consciousness, initial encounter; S81.811A Laceration without foreign body, right lower leg, initial encounter; S81.812A Laceration without foreign body, left lower leg, initial encounter; M62.82 Rhabdomyolysis; W01.0XXA Fall on same level from slipping, tripping and stumbling without subsequent striking against object, initial encounter; Y93.01 Activity, walking, marching and hiking; Y92.008 Other place in unspecified non-institutional (private) residence as the place of occurrence of the external cause; I10 Essential (primary) hypertension; E78.5 Hyperlipidemia, unspecified; F31.9 Bipolar disorder, unspecified; Z87.442 Personal history of urinary calculi; Z98.84 Bariatric surgery status; Z20.822 Contact with and (suspected) exposure to COVID-19
CPT/HCPCS: 36415; 70450; 71045; 72125; 73502; 80053; 82550; 82553; 83880; 84484; 85025; 93005; 99284; J7030; U0002

== ENCOUNTER 2020-10-02 00:13 | Emergency (ER) | payer MEDICARE ==
[~2020-10-02] VITALS: Ht 157.5 cm; Wt 46.7 kg
[2020-10-02 01:13] LABS: HEMATOCRIT 32.4 % (34.2-44.1); HEMOGLOBIN 10.3 g/dL (12.0-16.0); LYMPHOCYTES # (AUTO) 1.3 (1.0-3.2); LYMPHOCYTES % 38.2 % (18.0-39.1); MEAN CORPUSCULAR HEMOGLOBIN 28.6 pg (28-32); MEAN CORPUSCULAR HGB CONC 31.8 g/dL (31-35); MONOCYTES # (AUTO) 0.2 (0.2-0.8); MONOCYTES % 6.3 % (4.4-11.3); NEUTROPHILS # (AUTO) 1.9 (2.1-6.9); NEUTROPHILS % 55.2 % (38.7-80.0); PLATELET COUNT 196 x10e3/uL (140-360); RED CELL DISTRIBUTION WIDTH 13.5 % (11.7-14.4)
[2020-10-02 01:17] LABS: CLARITY,URINE CLEAR (CLEAR); COLOR,URINE YELLOW (YELLOW); KETONES,URINE NEGATIVE (NEGATIVE); LEUKOCYTE ESTERASE ,URINE NEGATIVE (NEGATIVE); NITRITE,URINE NEGATIVE (NEGATIVE); PHENCYCLIDINE SCREEN,URINE POSITIVE (NEGATIVE); PROTEIN,URINE DIPSTICK NEGATIVE (NEGATIVE)
[2020-10-02 01:18] LABS: AMPHETAMINES SCREEN,URINE NEGATIVE (NEGATIVE); BENZODIAZEPINES SCREEN,URINE NEGATIVE (NEGATIVE); URINE UROBILINOGEN 0.2 mg/dL (0.2 - 1)
[2020-10-02 01:24] LABS: ALBUMIN 3.6 g/dL (3.5-5.0); ALBUMIN/GLOBULIN RATIO 1.4 (0.8-2.0); ANION GAP 11.8 mmol/L (8-16); CALCIUM 9.5 mg/dL (8.4-10.2); CREATININE, SERUM 0.72 mg/dL (0.57-1.11); POTASSIUM 3.8 mmol/L (3.5-5.1)
[2020-10-02 01:36] LABS: BACTERIA,URINE MODERATE /HPF; EPITHELIAL CELLS,URINE FEW /LPF; MUCUS,URINE MANY (RARE); RBC,URINE 0-5 /HPF (0-5); WBC,URINE (MAN) 0-5 /HPF (0-5)
[2020-10-02] MEDS ORDERED: LORAZEPAM INJ 2 MG/ML VIAL IV ONE (02:30)
[2020-10-02] MEDS ORDERED: LORAZEPAM INJ 2 MG/ML VIAL ONE (02:32)
[2020-10-02 03:45] VITALS: BP 109/75
== END 2020-10-02 03:52 | disposition other institution (70) ==
LOC: ER 00:20
DX: S06.5X0A Traumatic subdural hemorrhage without loss of consciousness, initial encounter (principal); R42 Dizziness and giddiness; W06.XXXA Fall from bed, initial encounter; Y93.84 Activity, sleeping; Y92.008 Other place in unspecified non-institutional (private) residence as the place of occurrence of the external cause; I10 Essential (primary) hypertension; E78.5 Hyperlipidemia, unspecified; F10.10 Alcohol abuse, uncomplicated; F20.9 Schizophrenia, unspecified; Z98.84 Bariatric surgery status; Z20.822 Contact with and (suspected) exposure to COVID-19
CPT/HCPCS: 36415; 70450; 71045; 72125; 72170; 80053; 80307; 80320; 81001; 82140; 85025; 99284; J2060; U0002